=== PATIENT | female | born 1945 | race Caucasian/White ===

== ENCOUNTER 2017-11-05 11:46 | Inpatient (IN) ==
[2017-11-05] MEDS ORDERED: ONDANSETRON 4 MG/2 ML VIAL IV ONE (12:10)
[2017-11-05] MEDS ORDERED: 0.9 % SODIUM CHLORIDE 1,000 ML IV SCH (12:15)
[2017-11-05] MEDS: HYDROmorphone 2 MG/ML VIAL IV PRN ×3 (12:20→12:43)
--- NOTE | 2017-11-05 12:41 | Emergency Department Note ---
Lower Extremity Injury HPI - General Chief Complaint: Extremity Injury, Lower Stated Complaint: L hip fx Time Seen by Provider: 11/05/17 11:48 Source: patient Mode of arrival: wheelchair Limitations: no limitations - History of Present Illness HPI Narrative: 72-year-old female with advanced dementia presents with her . She was diagnosed with hip fracture about 2 weeks ago and since then has had a lot of pain in multiple falls. She saw Dr. Anderson yesterday and they decided on doing surgery either today or tomorrow. She last ate around 8:00 this morning. She is having significant pain in her hip. I saw her originally for this and she did not have much pain. She seems to be in a lot more pain now. She is able to verbalize that she is having pain. - Related Data Home Medications Medication Instructions Recorded Confirmed multivitamin,[id number] 1 tab PO QDAY 04/25/15 11/05/17 tablet LORazepam [Ativan] 1 tab PO TID PRN 10/20/17 11/05/17 Previous Rx's Medication Instructions Recorded fluoxetine 40 mg capsule 40 mg PO QDAY #30 cap 08/24/17 trazodone 50 mg tablet 50 mg PO QDAY PRN #90 tab 10/20/17 compression stocking,thigh See Dose Instructions .ROUTE 10/21/17 high,short length,med circum .MEDSUPPLY #2 each levothyroxine 112 mcg tablet 112 mcg PO QDAY #30 tab 10/30/17 methocarbamol 500 mg tablet 500 mg PO TID #30 tab 11/03/17 fentanyl 12 mcg/hr transdermal 1 patch TRANSDERMA Q72H #5 each 11/05/17 patch Allergies Allergy/AdvReac Type Severity Reaction Status Date / Time Penicillins Allergy Unknown Hives Verified 10/22/17 08:12 memantine [From Namenda] AdvReac Intermediate Hallucinati Verified 10/22/17 08: 12 ng Donepezil AdvReac Unknown Hallucinati Verified 10/22/17 08:12 ng Review of Systems All systems ED: reviewed and negative except as stated. 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 Absent: conjunctival injection Neck: Present: normal inspection, full ROM Chest: Present: normal inspection, symmetric chest wall rise Respiratory: Present: normal lung sounds bilaterally Cardiovascular: Present: tachycardia, normal heart sounds Abdominal: Present: soft, tenderness, normal bowel sounds. Absent: distention, guarding, rebound, rigidity Abdominal tenderness: Present: diffuse, mild Extremities: Present: other (Left hip is tender to palpation. I do not do much range of motion due to known fracture) Neurological: Present: alert. Absent: oriented X3 Psychiatric: Present: anxious Skin: Present: warm, dry, intact Course Vital Signs Temperature 99.4 F H 11/05/17 11:47 Pulse Rate 101 H 11/05/17 11:47 Respiratory Rate 16 11/05/17 11:47 Blood Pressure 150/92 11/05/17 11:47 Pulse Oximetry (%) 98 11/05/17 11:47 Temperature 97.5 F 11/05/17 14:41 Pulse Rate 94 H 11/05/17 14:41 Respiratory Rate 16 11/05/17 14:41 Blood Pressure 146/73 11/05/17 14:41 Pulse Oximetry (%) 95 11/05/17 14:41 Extremity Injury, Lower - MDM Narrative Medical decision making narrative: I talked with Dr. Anderson from [facility] and he is doing surgery today on the patient. She has been n.p.o. since being here. Pain has been relatively controlled with Dilaudid. She will be admitted by the hospitalist Dr. Mckeon - Lab Data Result diagrams: 11/05/17 12:43 11/05/17 12:42 Lab Results 11/05/17 11/05/17 11/05/17 Range/Units 12:10 12:42 12:43 WBC 6.5 (4.5-11.0) K/mcL RBC 4.03 (4.00-5.20) M/mcL Hgb 13.2 (12.0-15.0) g/dL Hct 38.5 (36.0-48.0) % MCV 95.5 (80.0-100.0) fL MCH 32.7 (26.0-34.0) pg MCHC 34.3 (31.0-36.0) g/dL RDW 13.9 (11.5-14.5) % Plt Count 355 (140-440) K/mcL MPV 7.3 L (7.4-10.4) fL Gran % 75.2 (38.0-78.0) % Lymph % (Auto) 15.3 L (15.5-49.0) % [place] % (Auto) 8.6 (1.0-12.0) % Eos % (Auto) 0.8 (0.0-7.0) % Baso % (Auto) 0.1 (0.0-2.0) % Gran # 4.9 (1.8-8.0) K/mcL Lymph # (Auto) 1.0 L (1.5-4.8) K/mcL [place] # (Auto) 0.6 (0.1-0.9) K/mcL Eos # (Auto) 0.1 (0.0-0.7) K/mcL Baso # (Auto) 0 (0.0-0.3) K/mcL Sodium 134 (133-145) mmol/L Potassium 4.2 (3.3-5.1) mmol/L Chloride 96 (96-108) mmol/L Carbon Dioxide 25 (22-30) mmol/L Anion Gap 13.0 (8-16) BUN 18 (8-23) mg/dl Creatinine 0.9 (0.6-1.1) mg/dl GFR Calculation 63 Glucose 104 (70-105) mg/dL Calcium 9.2 (8.6-10.4) mg/dl Total Bilirubin 0.8 (0.0-1.0) mg/dL AST 29 (0-37) U/l ALT 14 (0-40) U/l Alkaline Phosphatase 123 H (39-117) U/L Total Protein 7.4 (5.9-8.4) gm/dL Albumin 3.9 (3.2-5.2) gm/dL Globulin 3.5 (2.2-3.7) gm/dL Albumin/Globulin Ratio 1.1 (1.0-2.3) Procalcitonin < 0.05 (<0.10) ng/mL Urine Color Urine Appearance Urine pH (5.0-9.0) Ur Specific [place] (1.000-1.035) Urine Protein (NEG) mg/dL Urine Glucose (UA) (NEG) mg/dL Urine Ketones (NEG) mg/dL Urine Occult Blood (<0.03) mg/dL Urine Nitrate (NEG) Urine Bilirubin (NEG) mg/dL Urine Urobilinogen (NEG) mg/dL Ur Leukocyte Esterase (NEG) /uL Urine RBC (0-1) /hpf Urine WBC (0-4) /hpf Ur Squamous Epith Cells (0-4) /hpf Amorphous Crystals (0) /hpf Urine Bacteria (0) /hpf Urine Mucus (0) /hpf Ur Culture Indicated? 11/05/17 Range/Units 13:03 WBC (4.5-11.0) K/mcL RBC (4.00-5.20) M/mcL Hgb (12.0-15.0) g/dL Hct (36.0-48.0) % MCV (80.0-100.0) fL MCH (26.0-34.0) pg MCHC (31.0-36.0) g/dL RDW (11.5-14.5) % Plt Count (140-440) K/mcL MPV (7.4-10.4) fL Gran % (38.0-78.0) % Lymph % (Auto) (15.5-49.0) % [place] % (Auto) (1.0-12.0) % Eos % (Auto) (0.0-7.0) % Baso % (Auto) (0.0-2.0) % Gran # (1.8-8.0) K/mcL Lymph # (Auto) (1.5-4.8) K/mcL [place] # (Auto) (0.1-0.9) K/mcL Eos # (Auto) (0.0-0.7) K/mcL Baso # (Auto) (0.0-0.3) K/mcL Sodium (133-145) mmol/L Potassium (3.3-5.1) mmol/L Chloride (96-108) mmol/L Carbon Dioxide (22-30) mmol/L Anion Gap (8-16) BUN (8-23) mg/dl Creatinine (0.6-1.1) mg/dl GFR Calculation Glucose (70-105) mg/dL Calcium (8.6-10.4) mg/dl Total Bilirubin (0.0-1.0) mg/dL AST (0-37) U/l ALT (0-40) U/l Alkaline Phosphatase (39-117) U/L Total Protein (5.9-8.4) gm/dL Albumin (3.2-5.2) gm/dL Globulin (2.2-3.7) gm/dL Albumin/Globulin Ratio (1.0-2.3) Procalcitonin (<0.10) ng/mL Urine Color Yellow Urine Appearance Hazy Urine pH 6.0 (5.0-9.0) Ur Specific [place] 1.024 (1.000-1.035) Urine Protein Neg (NEG) mg/dL Urine Glucose (UA) Negative (NEG) mg/dL Urine Ketones 5/tr A (NEG) mg/dL Urine Occult Blood Neg (<0.03) mg/dL Urine Nitrate Neg (NEG) Urine Bilirubin Neg (NEG) mg/dL Urine Urobilinogen Neg (NEG) mg/dL Ur Leukocyte Esterase Neg (NEG) /uL Urine RBC 3 H (0-1) /hpf Urine WBC 0 (0-4) /hpf Ur Squamous Epith Cells 1 (0-4) /hpf Amorphous Crystals Few A (0) /hpf Urine Bacteria 0 (0) /hpf Urine Mucus Few (0) /hpf Ur Culture Indicated? No - Radiology Data Radiology results reviewed: Yes I reviewed the patient's radiology results. Moderate stable COPD changes. No acute disease Disposition Pt seen by PIECE WORK CHECKER/PA only: Yes Clinical Impression: Hip fracture Disposition: Xfer As Inpt ([facility]) Condition: Fair
[2017-11-05] MEDS ORDERED: cefTRIAXone 1 GM VIAL IV ONE (12:53)
--- NOTE | 2017-11-05 13:07 | XRay Report ---
CLINICAL INFORMATION: Preop COMPARISON: 06/22/2016 FINDINGS: Heart size, mediastinum and pulmonary vessels are normal. Moderate COPD changes are stable. No infiltrates or new pulmonary abnormalities. No effusions IMPRESSION: Moderate stable COPD changes. No acute disease Interpreted and Authenticated by: Everardo Finley 11/05/17
[2017-11-05 13:12] LABS: Basophils # (Auto) 0 K/mcL (0.0-0.3); Basophils % (Auto) 0.1 % (0.0-2.0); Eosinophils # (Auto) 0.1 K/mcL (0.0-0.7); Eosinophils % (Auto) 0.8 % (0.0-7.0); Granulocytes % (Auto) 75.2 % (38.0-78.0); Lymphocytes % (Auto) 15.3 % (15.5-49.0); Mean Cell Volume 95.5 fL (80.0-100.0); Mean Corpuscular HGB Conc 34.3 g/dL (31.0-36.0); Mean Corpuscular Hemoglobin 32.7 pg (26.0-34.0); Monocytes # (Auto) 0.6 K/mcL (0.1-0.9); Monocytes % (Auto) 8.6 % (1.0-12.0); Platelet Count 355 K/mcL (140-440); RBC 4.03 M/mcL (4.00-5.20); Red Cell Distribution Width 13.9 % (11.5-14.5)
[2017-11-05 13:41] LABS: ALT/SGPT 14 U/l (0-40); Albumin 3.9 gm/dL (3.2-5.2); Albumin/Globulin Ratio 1.1 (1.0-2.3); Alkaline Phosphatase 123 U/L (39-117); Blood Urea Nitrogen 18 mg/dl (8-23)
[2017-11-05 13:43] LABS: Appearance,Urine HAZY; Bacteria,Urine 0 /hpf (0); Bilirubin,Urine NEG (NEG); Color,Urine YELLOW; Glucose,Urine (UA) NEGATIVE (NEG); Leukocyte Esterase,Urine NEG /uL (NEG); Mucus,Urine FEW /hpf (0); Protein,Urine NEG (NEG); Specific Gravity,Urine 1.024 (1.000-1.035); Urine Amorphous Crystals FEW /hpf (0); Urine Blood NEG mg/dL (<0.03); Urine RBC 3 /hpf (0-1); Urine Squamous Epithelial Cell 1 /hpf (0-4); Urine WBC 0 /hpf (0-4); Urobilinogen,Urine NEG (NEG)
[2017-11-05] MEDS ORDERED: IPRATROPIUM/ALBUTEROL 3 ML AMPUL.NEB NEB ONE ×2 (13:47→14:50)
--- NOTE | 2017-11-05 14:41 | Emergency Department Note ---
ED Note Addendum Note Addendum: Case discussed with nurse practitioner lab tests have been reviewed consult with the orthopedic doctor patient to be admitted to the hospitalist and please will do surgery tomorrow for the hip fracture
[2017-11-05] MEDS ORDERED: oxyCODONE HCL 5 MG TABLET PO PRN ×2 (14:44→19:13)
[2017-11-05] MEDS ORDERED: LORazepam 0.5 MG TABLET PO PRN ×2 (14:44→19:13)
[2017-11-05] MEDS ORDERED: ACETAMINOPHEN 325 MG TABLET PO PRN ×2 (14:44→19:13)
[2017-11-05] MEDS ORDERED: ONDANSETRON 4 MG/2 ML VIAL IV PRN ×3 (14:44→19:13)
[2017-11-05] MEDS ORDERED: HYDROmorphone 2 MG/ML VIAL IV PRN (14:44)
[2017-11-05] MEDS ORDERED: DEXTROSE 5%-1/2NS 1,000 ML IV SCH (14:44)
[2017-11-05] MEDS ORDERED: ALBUTEROL SULFATE 2.5 MG/3 ML NEBULIZER NEB PRN ×2 (14:44→19:13)
[2017-11-05] MEDS ORDERED: CLINDAMYCIN 900 MG in DEXTROSE 5% IN WATER 50 ML IV ONE (14:50)
[2017-11-05] MEDS ORDERED: METHOCARBAMOL 500 MG TABLET PO SCH (15:00)
[2017-11-05] MEDS: IPRATROPIUM/ALBUTEROL 3 ML AMPUL.NEB NEB SCH ×4 (15:21→21:54)
--- NOTE | 2017-11-05 15:28 | Internal Med History&Physical ---
Medical - H&P: HPI Patient information: Note initiated : 11/05/17 at 3:26 pm Service Date, if different from initiated Date: [] Patient: Patricia Jenkins a 72 y/o F admitted on 11/05/17 for L hip fx. Chief Complaint: [] History of present illness: Ms. Jenkins is a 72 year old F with h/o severe dementia, non ambulatory, presents to the ER after being sent to the ER by Dr Anderson from ortho clinic. She is a resident of [facility] The patient apparently fell down a couple weeks ago, she was seen in the ED here and it was found that she had a left hip nondisplaced fracture. At that time with extensive discussion with orthopedics and family given advanced dementia nonambulatory status it was decided to treat this conservatively. The patient apparently had 2 or 3 more falls after that. The patient was seen in the ER to clinic today by Dr. Anderson x-ray done in the clinic showed that the fracture is not displaced. The patient has significant pain as a result of this fracture. The patient was sent to the ED today for evaluation. On speaking with Dr. Anderson it is understood that the patients family now wishes for operative intervention. Medicine is consulted for admission and management of chronic medical condition. The patient is nonverbal unable to provide any history. by the bedside confirmed the story. Denies any fever. In the emergency room patient had a low-grade temperature of 99.4, tachycardic with a heart rate of 101 blood pressure 1 5092 and she was saturating 95% on room air. Labs were unremarkable, urinalysis negative. Pro-calcitonin less than 0.05. Chest x-ray showed no acute infiltrate, moderate stable COPD. EKG done showed sinus tachycardia, QS pattern in V1 V2 V3, poor baseline, no significant change from EKG done in June 2016. There is no history of diabetes, no history of coronary kidney disease no history of congestive heart failure no history of myocardial infarction no history of strokes or TIAs. The patient was going for surgery today at around 3 PM The patient is high risk for perioperative mortality given her advanced dementia, decreased effort tolerance. I do not think much can be done to optimize her further. She has some wheezing and is getting DuoNeb perioperatively. I reviewed the risks with the patient's verbalized understanding. ROS unobtainable: due to mental status Medical - H&P: PMH Medical history: Medical History (Last Reviewed 04/22/17 @ 11:27 by Ryanne Bermudez, AILYN, REFINING EQUIPMENT OPERATOR) Upper respiratory infection (Acute) Frequent falls (Acute) Dementia (Chronic) Allergic rhinitis (Chronic) Shingles (Acute) Elevated blood pressure reading in office without diagnosis of hypertension ( Acute) Irritability and anger (Acute) COPD (chronic obstructive pulmonary disease) (Chronic) Osteoporosis (Chronic) Memory impairment (Chronic) Hyperlipidemia (Chronic) Hypothyroidism (Chronic) Hematuria (Resolved) Surgical history: Past Surgical History (Last Reviewed 04/22/17 @ 11:27 by Ryanne Bermudez, AILYN, REFINING EQUIPMENT OPERATOR) History of tonsillectomy (Resolved) Status post cataract surgery (Resolved ~01/2016) Pertinent family history: Family History (Last Reviewed 04/22/17 @ 11:27 by Ryanne Bermudez, AILYN, REFINING EQUIPMENT OPERATOR) Mother Heart failure Memory impairment Sister Alzheimer's disease Asthma Son Type 1 diabetes mellitus, Onset Age: 9 Medical - H&P: Meds Home Medications Medication Instructions Recorded Confirmed Type multivitamin,[id number] 1 tab PO QDAY 04/25/15 11/05/17 History tablet fluoxetine 40 mg capsule 40 mg PO QDAY #30 cap 08/24/17 11/05/17 Rx LORazepam [Ativan] 1 tab PO TID PRN 10/20/17 11/05/17 History trazodone 50 mg tablet 50 mg PO QDAY PRN #90 tab 10/20/17 11/05/17 Rx compression stocking,thigh See Dose Instructions .ROUTE 10/21/17 Rx high,short length,med circum .MEDSUPPLY #2 each levothyroxine 112 mcg tablet 112 mcg PO QDAY #30 tab 10/30/17 11/05/17 Rx methocarbamol 500 mg tablet 500 mg PO TID #30 tab 11/03/17 11/05/17 Rx fentanyl 12 mcg/hr transdermal 1 patch TRANSDERMA Q72H #5 each 11/05/17 Rx patch Allergies Allergy/AdvReac Type Severity Reaction Status Date / Time Penicillins Allergy Unknown Hives Verified 10/22/17 08:12 memantine [From Namenda] AdvReac Intermediate Hallucinati Verified 10/22/17 08: 12 ng Donepezil AdvReac Unknown Hallucinati Verified 10/22/17 08:12 ng Medical - H&P: Exam - Constitutional Vitals: Temp Pulse Resp BP Pulse Ox 97.5 F 94 H 16 146/73 95 11/05/17 14:41 11/05/17 14:41 11/05/17 14:41 11/05/17 14:41 11/05/17 14:41 Exam: GENERAL: The patient is a well-developed, malnourished, frail lady, drowsy, aoox0. VITAL SIGNS: Reviewed and as noted elsewhere. HEENT: Head is normocephalic and atraumatic. Pupils are equal, round, and reactive to light pin point. Nares appeared normal. Mouth appears any without lesions. Mucous membranes are dry NECK: Normal to inspection, Supple, No lymphadenopathy or thyromegaly. LUNGS: Air entry equal on both sides, prolonged exp phase, mild exp wheezing, no crackles or rhonchi noted. No accessory muscles of respiration HEART: tachycardic rate and rhythm normal, S1 and S2 heard, no Gallop, S3 or Rub Noted, No Gross murmur heard. ABDOMEN: Soft, nontender, and nondistended. Positive bowel sounds. No hepatosplenomegaly was noted. EXTREMITIES: No cyanosis, clubbing, rash, lesions or edema. NEUROLOGIC: Cranial nerves II through XII are grossly intact. PSYCHIATRIC: drowsy, SKIN: No ulceration or wounds noted, No jaundice, No rash noted. Medical - H&P: Reslt - Labs CBC & Chem 7: 11/05/17 12:43 11/05/17 12:42 Labs: Short CBC 11/05/17 Range/Units 12:43 WBC 6.5 (4.5-11.0) K/mcL Hgb 13.2 (12.0-15.0) g/dL Hct 38.5 (36.0-48.0) % Plt Count 355 (140-440) K/mcL BMP 11/05/17 12:42 Sodium 134 Potassium 4.2 Chloride 96 Carbon Dioxide 25 BUN 18 Creatinine 0.9 Glucose 104 Calcium 9.2 Liver Function 11/05/17 Range/Units 12:42 Total Bilirubin 0.8 (0.0-1.0) mg/dL AST 29 (0-37) U/l ALT 14 (0-40) U/l Alkaline Phosphatase 123 H (39-117) U/L Albumin 3.9 (3.2-5.2) gm/dL Urine 11/05/17 Range/Units 13:03 Urine Color Yellow Urine Appearance Hazy Urine pH 6.0 (5.0-9.0) Ur Specific [place] 1.024 (1.000-1.035) Urine Protein Neg (NEG) mg/dL Urine Glucose (UA) Negative (NEG) mg/dL Medical - H&P: A/P - Narrative A/P Narrative: A/P Left Hip Fracture- Management per Ortho, hemiarthroplasty planned Pre Op eval- noted copd, needs duoneb perioperatively, high risk, reviewed with family, given poor mental status, poor mental status at baseline, high risk of post op delirum, agitation and aspiration. Dementia- resume home meds, non verbal it seems COPD- some wheezing noted periop, duonebs q4 for now, will start on steroids/ azithromax if continues to have wheezing. dvt hep sq Dient npo for now DNR code status. Social History - Social History household members: spouse, family, other housing: house marital status: occupational status: retired occupation: [employer] occupational exposures/hazards: No pets and animals: No leisure activities: art, reading other: 2 sons - Dietary Habits well-balanced diet: about half the time eating out: 1-3 times/week during the past year weight has: decreased > 10 lbs - Exercise physical activity: additional frequency: other - Tobacco smoking status: Never smoker - Alcohol alcohol intake frequency: does not drink - Substance use substance use type: does not use - Madeline/Yarsanism madeline/jain: Judaism - Home Safety working smoke detector in home: Yes
[2017-11-05] MEDS ORDERED: FLUMAZENIL 0.1 MG/ML ML IV PRN (16:13)
[2017-11-05] MEDS ORDERED: MEPERIDINE 25 MG/ML SYRINGE IV PRN (16:13)
[2017-11-05] MEDS ORDERED: ACETAMINOPHEN 700 MG/70 ML BOTTLE IV ONE (16:13)
[2017-11-05] MEDS ORDERED: LACTATED RINGERS 250 ML IV PRN (16:13)
[2017-11-05] MEDS ORDERED: PROMETHAZINE 25 MG/ML VIAL IV PRN (16:13)
[2017-11-05] MEDS ORDERED: fentaNYL 100 MCG/2 ML VIAL IV PRN (16:13)
[2017-11-05] MEDS ORDERED: IPRATROPIUM/ALBUTEROL 3 ML AMPUL.NEB NEB PRN (16:13)
[2017-11-05] MEDS ORDERED: diphenhydrAMINE 50 MG/ML VIAL IV PRN (16:13)
[2017-11-05] MEDS ORDERED: BENZOCAINE/MENTHOL 1 LOZENGE PO PRN (16:13)
[2017-11-05] MEDS ORDERED: LACTATED RINGERS 1,000 ML IV SCH (16:15)
--- NOTE | 2017-11-05 16:47 | Brief Operative Note ---
Date of procedure: 11/05/17 Pre-op diagnosis: left displaced femoral neck fracture Post-op diagnosis: same Procedure: left hip kisha arthroplasty, cemented Grafts/Implants: Yes (Debuy [place] basic cemented stem size 5, 50mm head) Anesthesia: GLMA Findings: displaced femoral neck fracture Complications: none Surgeon: Simran Anderson Mirror Silverer: Maximo Dejesus Estimated blood loss (cc): 100 Tourniquet Time (Minutes): 0 Specimens Removed/Pathology: none sent Condition: stable Disposition: floor
[2017-11-05] MEDS: NALOXONE HCL 0.4 MG/ML VIAL IV PRN ×4 (18:12→18:25)
--- NOTE | 2017-11-05 18:34 | XRay Report ---
CLINICAL INFORMATION: ITS.REASON: s/p L hip kisha arthroplasty COMPARISON: None. FINDINGS: Left hip prostheses is anatomically aligned. Mild degenerative change of the right hip. No osseous abnormality. Soft tissues swelling the surgical site as expected IMPRESSION: Interpreted and Authenticated by: Everardo Finley 11/05/17
[2017-11-05] MEDS ORDERED: NALOXONE HCL 1 MG in 0.9 % SODIUM CHLORIDE 250 ML IV SCH (18:45)
[2017-11-05] MEDS ORDERED: NALOXONE HCL 0.4 MG/ML VIAL ONE (18:50)
[2017-11-05] MEDS ORDERED: AZITHROMYCIN 500 MG in DEXTROSE 5% IN WATER 250 ML IV ONE (19:42)
[2017-11-05] MEDS: DEXTROSE 5%-1/2NS 1,000 ML IV SCH (20:00)
[2017-11-05] MEDS ORDERED: HEPARIN 5,000 UNIT/ML VIAL SQ SCH (21:00)
[2017-11-05] MEDS ORDERED: METHOCARBAMOL 500 MG TABLET PO PRN (21:00)
[2017-11-05] MEDS ORDERED: traZODone HCL 50 MG TABLET PO PRN ×2 (21:00)
[2017-11-05] MEDS: methylPREDNISolone SOD SUCC 125 MG/2 ML VIAL IV SCH (22:00)
[2017-11-05] MEDS ORDERED: 0.9 % SODIUM CHLORIDE 10 ML SYRINGE IV SCH (22:00)
[2017-11-05] MEDS ORDERED: ENOXAPARIN 40 MG/0.4 ML SYRINGE SQ ONE ×2 (22:00)
[2017-11-06] MEDS: NALOXONE HCL 1 MG in 0.9 % SODIUM CHLORIDE 250 ML IV SCH ×3 (01:28→03:57)
[2017-11-06] MEDS: 0.9 % SODIUM CHLORIDE 10 ML SYRINGE IV SCH ×3 (01:39→13:59)
[2017-11-06] MEDS: HYDROmorphone 2 MG/ML VIAL IV PRN ×2 (03:30→08:27)
[2017-11-06] MEDS: IPRATROPIUM/ALBUTEROL 3 ML AMPUL.NEB NEB SCH ×6 (03:57→23:04)
[2017-11-06] MEDS: methylPREDNISolone SOD SUCC 125 MG/2 ML VIAL IV SCH (05:25)
[2017-11-06] MEDS ORDERED: NALOXONE HCL 1 MG in 0.9 % SODIUM CHLORIDE 250 ML IV PRN (07:15)
[2017-11-06] MEDS ORDERED: LEVOTHYROXINE SODIUM 112 MCG TABLET PO SCH ×2 (07:30)
--- NOTE | 2017-11-06 07:47 | Orthopedic Progress Note ---
Subjective Patient information: Note initiated : 11/06/17 at 7:45 am Service Date, if different from initiated Date: [] Patient: Patricia Jenkins 72 y/o F admitted on 11/05/17 for L hip fx. Chief Complaint: [] Principal diagnosis: left hip fracture Interval history: POD 1 s/p L hip kisha arthroplasty. Required a narcan drip and bipap after surgery - stopped at 0230- likely due to the dilaudid given in the ER upon arrival. This morning on room air and more at baseline. present. Objective Vital signs: Vital Signs Temp Pulse Pulse Resp BP BP BP 11/06/17 05:29 11/06/17 04:01 140/84 11/06/17 02:00 11/06/17 00:26 132/82 11/05/17 22:46 140/88 11/05/17 22:31 116/68 11/05/17 22:16 107/69 11/05/17 22:01 110/68 11/05/17 22:00 11/05/17 21:58 78 10 L 11/05/17 21:55 72 11 L 11/05/17 21:46 111/64 11/05/17 21:31 102/64 11/05/17 21:16 104/69 11/05/17 21:14 95 H 11 L 11/05/17 21:01 120/72 11/05/17 20:57 120/71 11/05/17 20:03 88 21 11/05/17 19:21 159/87 11/05/17 18:54 99.0 F 85 17 139/82 11/05/17 18:44 97.8 F 85 16 144/78 11/05/17 18:34 98.3 F 83 14 152/83 11/05/17 18:24 86 14 154/81 11/05/17 18:14 98.3 F 80 13 145/79 11/05/17 18:04 97.5 F 81 15 147/66 11/05/17 17:54 97.4 F 79 13 127/77 11/05/17 17:44 97.1 F 74 9 L 132/69 11/05/17 17:34 98.1 F 76 13 137/69 11/05/17 17:24 97.5 F 97 H 12 156/84 11/05/17 17:15 97.2 F 92 H 12 153/76 11/05/17 17:10 85 10 L 146/87 11/05/17 17:05 80 8 L 144/82 11/05/17 16:59 97.6 F 80 8 L 124/57 11/05/17 14:41 97.5 F 94 H 16 146/73 11/05/17 14:35 97.5 F 92 H 16 153/79 11/05/17 14:14 94 H 11/05/17 14:01 96 H 146/73 11/05/17 13:30 75 179/104 11/05/17 13:12 93 H 163/86 11/05/17 13:01 88 163/86 11/05/17 12:59 92 H 173/90 11/05/17 11:47 99.4 F H 101 H 16 150/92 Pulse Ox 11/06/17 05:29 95 11/06/17 04:01 11/06/17 02:00 98 11/06/17 00:26 11/05/17 22:46 11/05/17 22:31 11/05/17 22:16 11/05/17 22:01 11/05/17 22:00 98 11/05/17 21:58 11/05/17 21:55 100 11/05/17 21:46 11/05/17 21:31 11/05/17 21:16 11/05/17 21:14 98 11/05/17 21:01 11/05/17 20:57 11/05/17 20:03 11/05/17 19:21 11/05/17 18:54 99 11/05/17 18:44 100 11/05/17 18:34 100 11/05/17 18:24 97 11/05/17 18:14 100 11/05/17 18:04 100 11/05/17 17:54 100 11/05/17 17:44 100 11/05/17 17:34 100 11/05/17 17:24 95 11/05/17 17:15 100 11/05/17 17:10 100 11/05/17 17:05 100 11/05/17 16:59 100 11/05/17 14:41 95 11/05/17 14:35 95 11/05/17 14:14 94 11/05/17 14:01 97 11/05/17 13:30 90 11/05/17 13:12 100 11/05/17 13:01 95 11/05/17 12:59 94 11/05/17 11:47 98 Intake and Output 11/05/17 11/06/17 11/06/17 21:59 05:59 13:59 Intake Total 2633 / 2633 52 / 52 Output Total 600 / 600 400 / 400 Balance 2032 -348 / -348 Intake: IV 633 / 633 52 / 52 Sodium Chloride 0.9% 1,000 ml @ 563 / 563 250 mls/hr IV .Q4H RADHA Rx#: [id number] Narcan 1 mg In Sodium Chloride 52 / 52 0.9% 250 ml @ 0.2 MG/HR 50.5 mls/hr IV .Q5H RADHA Rx#: [id number] IV - Manual Only 1999 Output: Urine Catheter Amount 500 / 500 400 / 400 Estimated Blood Loss 100 / 100 Other: Urine Appearance Clear Urine Color Bright Yellow Weight 105 lb Intake & Output: Intake & Output 11/05/17 11/06/17 11/06/17 21:59 05:59 13:59 Intake Total 2633 / 2633 52 / 52 Output Total 600 / 600 400 / 400 Balance 2032 -348 / -348 Weight 105 lb Intake: IV 633 / 633 52 / 52 Sodium Chloride 0.9% 1,000 ml @ 563 / 563 250 mls/hr IV .Q4H RADHA Rx#: [id number] Narcan 1 mg In Sodium Chloride 52 / 52 0.9% 250 ml @ 0.2 MG/HR 50.5 mls/hr IV .Q5H RADHA Rx#: [id number] IV - Manual Only 1999 Output: Urine Catheter Amount 500 / 500 400 / 400 Estimated Blood Loss 100 / 100 Other: Urine Appearance Clear Urine Color Bright Yellow Incision: Yes clean and dry Incision clean and dry: Yes Dressing: Yes clean, Yes dry Weight bearing status: full Additional Comments: abduction pillow in place - Labs CBC & BMP: 11/05/17 12:43 11/05/17 12:42 Labs: 11/05/17 12:43 Hgb 13.2 Hct 38.5 Assessment and Plan (1) Fracture of hip, left, closed POD 1 s/p left hip kisha arthroplasty for displaced femoral neck fracture. Improved this AM but bit of long recovering after surgery. Likely will transition to regular med-surg bed today. - L hip: weight bearing as tolerated. PT/OT today with goal of at least sitting in a chair. Posterior hip precautions - Pain control- see how she does, currently dermal patch - Lovenox/scd's/IS - Dispo Pending Status: Acute Qualifiers: Encounter type: sequela Qualified Code(s): S72.002S - Fracture of unspecified part of neck of left femur, sequela
[2017-11-06] MEDS: DEXTROSE 5%-1/2NS 1,000 ML IV SCH (08:38)
[2017-11-06] MEDS ORDERED: FLUoxetine HCL 20 MG CAPSULE PO SCH ×2 (09:00)
[2017-11-06] MEDS ORDERED: MULTIVIT,THER IRON,CA,FA & MIN 1 TABLET PO SCH ×2 (09:00)
[2017-11-06] MEDS ORDERED: ACETAMINOPHEN 650 MG/65 ML BOTTLE IV PRN ×2 (09:05→11:27)
--- NOTE | 2017-11-06 09:06 | Operative Note ---
DATE OF OPERATION: 11/05/2017 PREOPERATIVE DIAGNOSIS: Left displaced femoral neck fracture. POSTOPERATIVE DIAGNOSIS: Left displaced femoral neck fracture. PROCEDURE PERFORMED: Left hip hemiarthroplasty. SURGEON: Simran Anderson MD WALL COVERING INSTALLER: Maximo Dejesus PA-C. ANESTHESIA: Archie Martinez CRNA via LMA and general. IV FLUIDS: 1400 mL lactated ringer. ESTIMATED BLOOD LOSS: 100 mL TOURNIQUET TIME: No applicable. IMPLANTS: 1. DePuy basic cemented stem size 5 [place]. 2. A fracture hip ball 50 mm. ANTIBIOTICS: 900 mg of clindamycin secondary to a PENICILLIN ALLERGY. COMPLICATIONS: None apparent. PATHOLOGY: None. INDICATIONS: The patient is a 72-year-old female with advanced dementia who is not conversive in a logical manner with multiple recent falls that was seen in the emergency department on 10/20 for evaluation of a left hip fracture. At that time it was a nondisplaced fracture and I had discussion with her sons with regard to treatment options to include operative and nonoperative. Per our discussion, the sons had stated that she would prefer the least invasive treatment available at that time including nonoperative. Given the nondisplaced nature of this fracture I did discuss that this can be done as she remains nonweightbearing. However, she has had several falls more recently over the weekend and presented to clinic today with a displaced fracture of femoral neck and extreme pain. At this time, discussed with the treatment options, and surgery was discussed with him. This would likely improve her pain and make her more mobile, especially with hygiene, etc. However, that has a very high risk of mortality and morbidity associated with this. He understands these risks; however, given the level of pain that she is in that is not well-controlled, they wished to proceed with surgery. DESCRIPTION OF PROCEDURE: The patient was met in the preoperative holding area. The site was verified and marked with a radiograph, validation of the correct side as well as the family input. She was then taken back to the operating room where she underwent successful anesthesia via an LMA. She had 1000 mg of TXA as well as 900 mg of IV clindamycin. She was placed in the lateral decubitus position with the left side up. It was then prepped and draped in the usual sterile fashion with ChloraPrep. Surgical timeout was performed to verify patient and correct procedure being performed, correct extremity being operated. Everybody was in agreement. Approximately a 10 cm incision was made over the posterior 1/3, middle 1/3 junction of the greater tuberosity extending distally along the shaft of the femur and posteriorly obliquely. Skin was sharply incised. The tensor fascia was identified and cleared. This was incised sharply as well to expose the trochanteric bursa as well as the greater trochanter itself. A self-retaining retractor was placed. The external rotators were identified posteriorly. Hemostasis had been obtained throughout the maintained throughout the case. The piriformis was tagged and excised off the piriformis insertion and the external rotators were excised, exposing the capsule. The capsule was incised in a T-type fashion to expose the femoral neck and the fracture itself. Dissection was taken down to the lesser tuberosity and marked 15 mm from there and then sharply incised using oscillating saw. The femoral neck fragments were excised. The femoral head was excised as well, excising some of the ligamentum teres along with this. The wound was then copiously irrigated utilizing a retractor, exposed the femoral neck with hip flexion and internal rotation. At this point, utilizing the box press operator and a canal finder and subsequent broaching up to a size 5 she had very bone very poor bone quality, including anterior bone quality, and I felt cementing was the best providing immediate stabilization, which in her case would be beneficial. Thus, we broached to a size 5, which had some rotational stability. At this point, we sized a femoral head which was a 50 mm. We trialed this and it was stable with a +5 mm head. The wound was copiously irrigated. Pulse lavage was utilized to clean out the canal. A cement restrictor was placed at 160 mm distal to the femoral neck cut. The canal was then pulse lavaged again and then a suction device was placed within the canal to keep it dry. The cement was being mixed on the back table. The cement was then injected utilizing the pressurized gun and then once filled, we pressurized the canal additionally. At this point, we placed the stem matching the femoral anteversion of the posterior cortical bone and held in place until cement was hardened. All the remaining loose cement was excised. Again, the wound was copiously irrigated with IrriSept which remained within the wound greater than 1 minute. The metal ball was placed onto the taper stem and impacted and the hip joint was reduced. It was taken through a range of motion. Length as well as stability was assessed and and was stable with this construct. The posterior capsule was closed with 0 Ethibond sutures with good stability. The piriformis was tagged back down to the greater trochanteric via soft tissue only. The tensor fascia mahamed was closed in a running fashion utilizing a barbed suture. The proximal muscular portion of that was closed with 0 Vicryl. The subcutaneous tissue was closed in layered fashion, 0 Vicryl deep to tack down the fat layer to the tensor to close down the deep space. Subcutaneous tissue closed with 3-0 Vicryl and skin closed with yomaira. A dry dressing was then applied. The patient was awoken from anesthesia and transferred to PACU in stable condition. POSTOPERATIVE PLAN: The patient will be admitted back to the floor for postoperative recovery. DLDuncan:madalyn Job ID: [id number] Doc ID: [id number] Simran MARTINEZ
[2017-11-06] MEDS ORDERED: LORazepam 0.5 MG TABLET PO PRN (09:44)
[2017-11-06] MEDS ORDERED: AZITHROMYCIN 250 MG in DEXTROSE 5% IN WATER 250 ML IV SCH (10:00)
[2017-11-06] MEDS ORDERED: ONDANSETRON 4 MG/2 ML VIAL IV PRN (11:27)
[2017-11-06] MEDS ORDERED: HYDROmorphone 2 MG/ML VIAL IV PRN (11:27)
[2017-11-06] MEDS ORDERED: ALBUTEROL SULFATE 2.5 MG/3 ML NEBULIZER NEB PRN (11:27)
[2017-11-06] MEDS ORDERED: ENOXAPARIN 40 MG/0.4 ML SYRINGE SQ SCH ×2 (13:00→14:00)
[2017-11-06] MEDS: ENOXAPARIN 40 MG/0.4 ML SYRINGE SQ SCH (13:59)
--- NOTE | 2017-11-06 14:31 | Internal Med Progress Note ---
Medical - PN: Subj Patient information: Note initiated : 11/06/17 at 2:29 pm Service Date, if different from initiated Date: [] Patient: Patricia Jenkins a 72 y/o F admitted on 11/05/17 for Left Hip Fracture. Chief Complaint: [] Interval history: Ms. Jenkins is a 72 year old F with h/o severe dementia, non ambulatory, presents to the ER after being sent to the ER by Dr Anderson from ortho clinic. She is a resident of [facility] The patient apparently fell down a couple weeks ago, she was seen in the ED here and it was found that she had a left hip nondisplaced fracture. At that time with extensive discussion with orthopedics and family given advanced dementia nonambulatory status it was decided to treat this conservatively. The patient apparently had 2 or 3 more falls after that. The patient was seen in the ER to clinic today by Dr. Anderson x-ray done in the clinic showed that the fracture is not displaced. The patient has significant pain as a result of this fracture. The patient was sent to the ED today for evaluation. On speaking with Dr. Anderson it is understood that the patients family now wishes for operative intervention. Medicine is consulted for admission and management of chronic medical condition. The patient is nonverbal unable to provide any history. by the bedside confirmed the story. Denies any fever. In the emergency room patient had a low-grade temperature of 99.4, tachycardic with a heart rate of 101 blood pressure 1 5092 and she was saturating 95% on room air. Labs were unremarkable, urinalysis negative. Pro-calcitonin less than 0.05. Chest x-ray showed no acute infiltrate, moderate stable COPD. EKG done showed sinus tachycardia, QS pattern in V1 V2 V3, poor baseline, no significant change from EKG done in June 2016. There is no history of diabetes, no history of coronary kidney disease no history of congestive heart failure no history of myocardial infarction no history of strokes or TIAs. The patient was going for surgery today at around 3 PM The patient is high risk for perioperative mortality given her advanced dementia, decreased effort tolerance. I do not think much can be done to optimize her further. She has some wheezing and is getting DuoNeb perioperatively. I reviewed the risks with the patient's verbalized understanding. 11/06 Patient seen and examined, overnight patient clinically improved, did not need BiPAP this morning. Of the Narcan drip. Patient is nonverbal unable to provide any meaningful history. by the bedside concerned about the chills. Resume patient's home medications especially Ativan at half dose 0.5 mg 3 times a day for as needed anxiety. Transfer the patient to [facility]. Pertinent ROS: unable - Constitutional Vitals: Vital Signs Temp Pulse Resp BP Pulse Ox 98 F 89 20 139/83 100 11/06/17 12:00 11/06/17 07:45 11/06/17 12:00 11/06/17 12:00 11/06/17 14:00 Period Temp Pulse Resp BP Sys/Brewer Pulse Ox Last 24 Hr 97.1 F-99.2 F 72-97 8-21 102-159/57-88 95-100 Intake and Output 11/06/17 11/06/17 11/06/17 05:59 13:59 21:59 Intake Total 52 / 52 1250 / 1250 Output Total 400 / 400 Balance -348 / -348 1250 / 1250 Weight 105 lb Patient Weight 11/07/17 05:59 Weight 105 lb Intake & Output: Intake & Output 11/06/17 11/06/17 11/06/17 05:59 13:59 21:59 Intake Total 52 / 52 1250 / 1250 Output Total 400 / 400 Balance -348 / -348 1250 / 1250 Weight 105 lb Intake: IV 52 / 52 1250 / 1250 Zithromax 250 mg In Dextrose 5% 250 / 250 in Water 250 ml @ 250 mls/hr IV Q24H [facility] Rx#:[id number] Dextrose 5%-1/2Ns IV Solution 1 1000 / 1000 ,000 ml @ 84 mls/hr IV .[id number] [facility] Rx#:[id number] Narcan 1 mg In Sodium Chloride 52 / 52 0.9% 250 ml @ 0.2 MG/HR 50.5 mls/hr IV .Q5H [facility] Rx#: [id number] Output: Urine Catheter Amount 400 / 400 Other: Urine Appearance Uretheral (Wolfe) Clear Urine Color Uretheral (Wolfe) Pale Exam: Constitutional; Afebrile, awake, not in distress. Eyes- No icterus, , No periorbital swelling Ears- Ext ear normal, Neck- Midline trachea, supple Respiratory system: Air Entry equal on both sides, No crackles or wheezing, no rhonchi. CVS- Rate rhythm regular, S1,S2 heard, no gallop, no rub. Abdomen- Soft nontender abdomen, no organomegaly, no tenderness, no guarding or rigidity, CORE INSPECTOR- AOOx0, moving all extremities, no gross focal deficit noted. Medical - PN: Obj Da - Labs CBC & Chem 7: 11/05/17 12:43 11/05/17 12:42 Labs: Abnormal Lab Results 11/05/17 11/05/17 11/05/17 13:03 12:43 12:42 MPV 7.3 L Lymph % (Auto) 15.3 L Lymph # (Auto) 1.0 L Alkaline Phosphatase 123 H Urine Ketones 5/tr A Urine RBC 3 H Amorphous Crystals Few A Meds: Medications Acetaminophen (Tylenol) 650 mg PO Q6HP PRN PRN Reason: PAIN/FEVER > 101 Albuterol Sulfate (Ventolin) 2.5 mg NEB Q2HP PRN PRN Reason: Shortness Of Breath Albuterol/Ipratropium (Duoneb) 3 ml NEB Q4HRT [facility] Enoxaparin Sodium (Lovenox) 40 mg SQ DAILY [facility] Last Admin: 11/06/17 13:59 Dose: 40 mg Fluoxetine HCl (Prozac) 40 mg PO DAILY [facility] Hydromorphone HCl (Dilaudid) 0.5 mg IV Q2HP PRN PRN Reason: PAIN LEVEL > 6 Last Admin: 11/06/17 13:52 Dose: 0.5 mg Azithromycin 250 mg/ Dextrose 250 mls @ 250 mls/hr IV Q24H [facility] Stop: 11/08/17 10:59 Acetaminophen (Ofirmev) 650 mg in 65 mls @ 130 mls/hr IV Q6HP PRN PRN Reason: PAIN/FEVER > 101 Iron Carb/Multivit/[place]/Folic Acid (Multivitamin W/Minerals) 1 tab PO DAILY [facility] Levothyroxine Sodium (Synthroid) 112 mcg PO ACB [facility] Lorazepam (Ativan) 0.5 mg PO TIDP PRN PRN Reason: Anxiety Methocarbamol (Robaxin) 500 mg PO TIDP PRN PRN Reason: Muscle Spasm Methylprednisolone Sodium Succinate (Solu-Medrol) 62.5 mg IV DAILY [facility] Ondansetron HCl (Zofran) 4 mg IV Q6HP PRN PRN Reason: Nausea And Vomiting Oxycodone HCl (Roxicodone) 5 mg PO Q4HP PRN PRN Reason: PAIN LEVEL 3-6 Sodium Chloride (Saline Flush) 10 ml IV Q8 [facility] Last Admin: 11/06/17 13:59 Dose: 10 ml Medical - PN: A/P - Time Spent With Patient Total time spent is greater than 50% in coordination of care (as documented) at patient's floor/unit and/or counseling patient: - Narrative A/P Narrative: A/P Left Hip Fracture- Management per Ortho, hemiarthroplasty ,post op day 1 Dementia- resume home meds, non verbal it seems COPD exacerbatio- resolved, on duonebs, on azithromycin and steroids, will complee 5 day course Hypoxic resp failure- post op due to copd and opiate overdose, resolved overnight, not needing bipap or narcan now. Altered mental status/ Opiate overdose- hold off on fentanyl, prn short acting drugs for now, monitor, AMS much better. dvt lovenox sq Dient npo for now DNR code status. Medical - PN: Qual - VTE Deep Vein Thrombosis/Pulmonary Embolism Present on Admission: No
[2017-11-06] MEDS ORDERED: DEXAMETHASONE 10 MG/ML VIAL IV ONE (15:05)
[2017-11-06] MEDS ORDERED: TRANEXAMIC ACID 1,000 MG/10 ML VIAL IV ONE (15:05)
[2017-11-06] MEDS ORDERED: PROPOFOL 200 MG/20 ML VIAL IV ONE (15:05)
[2017-11-06] MEDS ORDERED: LIDOCAINE HCL/PF 100 MG/5 ML SYRINGE IV ONE (15:05)
[2017-11-06] MEDS ORDERED: ONDANSETRON 4 MG/2 ML VIAL IV ONE (15:05)
[2017-11-06] MEDS: oxyCODONE HCL 5 MG TABLET PO PRN (16:15)
[2017-11-06] MEDS: LORazepam 0.5 MG TABLET PO PRN ×2 (16:48→20:40)
[2017-11-07] MEDS: oxyCODONE HCL 5 MG TABLET PO PRN ×3 (00:19→17:18)
[2017-11-07] MEDS ORDERED: OLANZapine 10 MG VIAL IM ONE (00:58)
[2017-11-07] MEDS: OLANZapine 10 MG VIAL IM PRN (01:12)
[2017-11-07] MEDS: 0.9 % SODIUM CHLORIDE 10 ML SYRINGE IV SCH (01:18)
[2017-11-07] MEDS: IPRATROPIUM/ALBUTEROL 3 ML AMPUL.NEB NEB SCH ×6 (02:32→22:52)
--- NOTE | 2017-11-07 07:16 | Orthopedic Progress Note ---
Subjective Patient information: Note initiated : 11/07/17 at 7:12 am Service Date, if different from initiated Date: [] Patient: Patricia Jenkins 72 y/o F admitted on 11/05/17 for Left Hip Fracture. Chief Complaint: [] Principal diagnosis: left hip fracture Interval history: POD 2 s/p L hip kisha arthroplasty. Disoriented overnight and pulled out IV per nurse but this AM is sleeping. Objective Vital signs: Vital Signs Temp Pulse Pulse Resp BP BP Pulse Ox 11/07/17 04:00 98.4 F 82 18 129/68 97 11/07/17 02:44 96 11/07/17 00:00 98.3 F 20 11/06/17 22:00 96 11/06/17 20:00 98.9 F 99 H 20 165/78 91 11/06/17 18:00 98 11/06/17 15:56 100 F H 16 132/76 98 11/06/17 15:14 90 18 11/06/17 14:00 100 11/06/17 12:00 98 F 20 139/83 99 11/06/17 10:00 98 11/06/17 08:29 99.2 F H 20 144/82 99 11/06/17 08:00 96 11/06/17 07:45 89 16 Intake and Output 11/06/17 11/07/17 11/07/17 21:59 05:59 13:59 Intake Total 280 / 280 Output Total 250 / 250 1500 / 1500 Balance -1500 / -1500 Intake: Oral 200 / 200 GI Tube Flush 80 / 80 Output: Urine Catheter Amount 250 / 250 1500 / 1500 Other: Meal Lunch Percent of Meal Consumed bites Feeding Ability Total Assistance Urine Appearance Uretheral (Wolfe) Clear Urine Color Dark Rajni Uretheral (Wolfe) Dark Yellow Weight 108 lb Intake & Output: Intake & Output 11/06/17 11/07/17 11/07/17 21:59 05:59 13:59 Intake Total 280 / 280 Output Total 250 / 250 1500 / 1500 Balance -1500 / -1500 Weight 108 lb Intake: Oral 200 / 200 GI Tube Flush 80 / 80 Output: Urine Catheter Amount 250 / 250 1500 / 1500 Other: Meal Lunch Percent of Meal Consumed bites Feeding Ability Total Assistance Urine Appearance Uretheral (Wolfe) Clear Urine Color Dark Rajni Uretheral (Wolfe) Dark Yellow Incision: Yes clean and dry Dressing: Yes clean Weight bearing status: full Additional Comments: Patient is asleep this AM. Appears comfortable, abduction pillow in place - Labs CBC & BMP: 11/05/17 12:43 11/05/17 12:42 Labs: 11/05/17 12:43 Hgb 13.2 Hct 38.5 Assessment and Plan (1) Fracture of hip, left, closed POD 2 s/p left hip kisha arthroplasty for displaced femoral neck fracture. Disorientation but per happens in the evening. - L hip: weight bearing as tolerated. PT/OT today with goal of at least sitting in a chair. Posterior hip precautions. Slow progress - Pain control- dermal patch, tylenol, - Lovenox/scd's/IS - Dispo Pending should follow up with ortho in 10-12 days after surgery, weight bearing as tolerated with posterior hip precations x6 weeks. Status: Acute Qualifiers: Encounter type: sequela Qualified Code(s): S72.002S - Fracture of unspecified part of neck of left femur, sequela
[2017-11-07] MEDS ORDERED: methylPREDNISolone SOD SUCC 125 MG/2 ML VIAL IV SCH ×2 (09:00)
[2017-11-07] MEDS ORDERED: AZITHROMYCIN 250 MG in DEXTROSE 5% IN WATER 250 ML IV SCH (10:00)
[2017-11-07] MEDS: LORazepam 0.5 MG TABLET PO PRN ×2 (10:30→20:04)
[2017-11-07] MEDS: LEVOTHYROXINE SODIUM 112 MCG TABLET PO SCH (10:37)
[2017-11-07] MEDS: AZITHROMYCIN 250 MG TABLET PO SCH (10:37)
[2017-11-07] MEDS: FLUoxetine HCL 20 MG CAPSULE PO SCH (10:39)
[2017-11-07] MEDS: MULTIVIT,THER IRON,CA,FA & MIN 1 TABLET PO SCH (10:40)
[2017-11-07] MEDS: ENOXAPARIN 40 MG/0.4 ML SYRINGE SQ SCH (10:46)
[2017-11-07] MEDS: predniSONE 20 MG TABLET PO SCH (10:49)
--- NOTE | 2017-11-07 11:24 | Internal Med Progress Note ---
Medical - PN: Subj Patient information: Note initiated : 11/07/17 at 11:22 am Service Date, if different from initiated Date: [] Patient: Patricia Jenkins a 72 y/o F admitted on 11/05/17 for Left Hip Fracture. Chief Complaint: [] Interval history: Ms. Jenkins is a 72 year old F with h/o severe dementia, non ambulatory, presents to the ER after being sent to the ER by Dr Anderson from ortho clinic. [facility] a [facility] The patient apparently fell down a couple weeks ago, she was seen in the ED here and it was found that she had a left hip nondisplaced fracture. At that time with extensive discussion with orthopedics and family given advanced dementia nonambulatory status it was decided to treat this conservatively. The patient apparently had 2 or 3 more falls after that. The patient was seen in the ER to clinic today by Dr. Anderson x-ray done in the clinic showed that the fracture is not displaced. The patient has significant pain as a result of this fracture. The patient was sent to the ED today for evaluation. On speaking with Dr. Anderson it is understood that the patients family now wishes for operative intervention. Medicine is consulted for admission and management of chronic medical condition. The patient is nonverbal unable to provide any history. by the bedside confirmed the story. Denies any fever. In the emergency room patient had a low-grade temperature of 99.4, tachycardic with a heart rate of 101 blood pressure 1 5092 and she was saturating 95% on room air. Labs were unremarkable, urinalysis negative. Pro-calcitonin less than 0.05. Chest x-ray showed no acute infiltrate, moderate stable COPD. EKG done showed sinus tachycardia, QS pattern in V1 V2 V3, poor baseline, no significant change from EKG done in June 2016. There is no history of diabetes, no history of coronary kidney disease no history of congestive heart failure no history of myocardial infarction no history of strokes or TIAs. The patient was going for surgery today at around 3 PM The patient is high risk for perioperative mortality given her advanced dementia, decreased effort tolerance. I do not think much can be done to optimize her further. She has some wheezing and is getting DuoNeb perioperatively. I reviewed the risks with the patient's verbalized understanding. 11/06 Patient seen and examined, overnight patient clinically improved, did not need BiPAP this morning. Of the Narcan drip. Patient is nonverbal unable to provide any meaningful history. by the bedside concerned about the chills. Resume patient's home medications especially Ativan at half dose 0.5 mg 3 times a day for as needed anxiety. Transfer the patient to [facility] status. 11/07 Pt seen examined overnight issures reviewed pt was having sundowning, zyprexa 5mg im given, with good response no iv access, on oral meds for now. will see how she does today, if still has sundowning and agitation, may need scheduled antip psychotic. plan reviewed with her . Pertinent ROS: unable. - Constitutional Vitals: Vital Signs Temp Pulse Resp BP Pulse Ox 98.3 F 99 H 20 166/80 92 11/07/17 08:00 11/07/17 08:00 11/07/17 08:00 11/07/17 08:00 11/07/17 10:00 Period Temp Pulse Resp BP Sys/Brewer Pulse Ox Last 24 Hr 98 F-100 F 79-99 16-20 129-166/68-83 91-100 Intake and Output 11/06/17 11/07/17 11/07/17 21:59 05:59 13:59 Intake Total 280 / 280 Output Total 250 / 250 1500 / 1500 Balance 30 / 30 -1500 / -1500 Weight 108 lb Intake & Output: Intake & Output 11/06/17 11/07/17 11/07/17 21:59 05:59 13:59 Intake Total 280 / 280 Output Total 250 / 250 1500 / 1500 Balance 30 / 30 -1500 / -1500 Weight 108 lb Intake: Oral 200 / 200 GI Tube Flush 80 / 80 Output: Urine Catheter Amount 250 / 250 1500 / 1500 Other: Meal Lunch Percent of Meal Consumed bites Feeding Ability Total Assistance Urine Appearance Uretheral (Wolfe) Clear Urine Color Dark Rajni Uretheral (Wolfe) Dark Yellow Exam: Constitutional; Afebrile,awake Respiratory system: Air Entry equal on both sides, No crackles or wheezing, no rhonchi. CVS- Rate rhythm regular, S1,S2 heard, no gallop, no rub. Abdomen- Soft nontender abdomen, no organomegaly, no tenderness, no guarding or rigidity, DIRECTOR OF STRATEGY & MOBILE- AOOx0, moving all extremities, no gross focal deficit noted. Medical - PN: Obj Da - Labs CBC & Chem 7: 11/05/17 12:43 11/05/17 12:42 Labs: Abnormal Lab Results 11/05/17 11/05/17 11/05/17 13:03 12:43 12:42 MPV 7.3 L Lymph % (Auto) 15.3 L Lymph # (Auto) 1.0 L Alkaline Phosphatase 123 H Urine Ketones 5/tr A Urine RBC 3 H Amorphous Crystals Few A Meds: Medications Acetaminophen (Tylenol) 650 mg PO Q6HP PRN PRN Reason: PAIN/FEVER > 101 Albuterol Sulfate (Ventolin) 2.5 mg NEB Q2HP PRN PRN Reason: Shortness Of Breath Albuterol/Ipratropium (Duoneb) 3 ml NEB Q4HRT [facility] Last Admin: 11/07/17 07:21 Dose: 3 ml Azithromycin (Zithromax) 250 mg PO DAILY [facility] Stop: 11/10/17 09:01 Last Admin: 11/07/17 10:37 Dose: 250 mg Enoxaparin Sodium (Lovenox) 40 mg SQ DAILY [facility] Last Admin: 11/07/17 10:46 Dose: 40 mg Fluoxetine HCl (Prozac) 40 mg PO DAILY [facility] Last Admin: 11/07/17 10:39 Dose: 40 mg Hydromorphone HCl (Dilaudid) 0.5 mg IV Q2HP PRN PRN Reason: PAIN LEVEL > 6 Last Admin: 11/06/17 13:52 Dose: 0.5 mg Acetaminophen (Ofirmev) 650 mg in 65 mls @ 130 mls/hr IV Q6HP PRN PRN Reason: PAIN/FEVER > 101 Iron Carb/Multivit/[place]/Folic Acid (Multivitamin W/Minerals) 1 tab PO DAILY [facility] Last Admin: 11/07/17 10:40 Dose: 1 tab Levothyroxine Sodium (Synthroid) 112 mcg PO ACB [facility] Last Admin: 11/07/17 10:37 Dose: 112 mcg Lorazepam (Ativan) 0.5 mg PO TIDP PRN PRN Reason: Anxiety Last Admin: 11/07/17 10:30 Dose: 0.5 mg Methocarbamol (Robaxin) 500 mg PO TIDP PRN PRN Reason: Muscle Spasm Olanzapine (Zyprexa) 5 mg IM ONCE PRN PRN Reason: Agitation Last Admin: 11/07/17 01:12 Dose: 5 mg Ondansetron HCl (Zofran) 4 mg IV Q6HP PRN PRN Reason: Nausea And Vomiting Oxycodone HCl (Roxicodone) 5 mg PO Q4HP PRN PRN Reason: PAIN LEVEL 3-6 Last Admin: 11/07/17 10:30 Dose: 5 mg Prednisone (Prednisone) 40 mg PO [facility] Last Admin: 11/07/17 10:49 Dose: 40 mg Medical - PN: A/P - Time Spent With Patient Total time spent is greater than 50% in coordination of care (as documented) at patient's floor/unit and/or counseling patient: - Narrative A/P Narrative: A/P Left Hip Fracture- Management per Ortho, hemiarthroplasty ,post op day 2 Dementia, with sundowning- resume home meds, lowered dose of ativan for now, zyprexa prn. COPD exacerbation- resolved, on duonebs, on azithromycin and steroids, will complee 5 day course Hypoxic resp failure- resolved, post op due to copd and opiate overdose, resolved overnight, not needing bipap or narcan now. Altered mental status/ Opiate overdose- hold off on fentanyl, prn short acting drugs for now, monitor, AMS much better. dvt lovenox sq DNR code status. Medical - PN: Qual - VTE Deep Vein Thrombosis/Pulmonary Embolism Present on Admission: No
[2017-11-07] MEDS: METHOCARBAMOL 500 MG TABLET PO PRN (19:00)
[2017-11-08] MEDS: oxyCODONE HCL 5 MG TABLET PO PRN ×3 (01:15→16:33)
[2017-11-08] MEDS: METHOCARBAMOL 500 MG TABLET PO PRN ×2 (01:15→11:31)
[2017-11-08] MEDS: IPRATROPIUM/ALBUTEROL 3 ML AMPUL.NEB NEB SCH ×6 (04:24→23:07)
--- NOTE | 2017-11-08 07:21 | Orthopedic Progress Note ---
Subjective Patient information: Note initiated : 11/08/17 at 7:15 am Service Date, if different from initiated Date: [] Patient: Patricia Jenkins 72 y/o F admitted on 11/05/17 for Left Hip Fracture. Chief Complaint: [] Principal diagnosis: left hip fracture Interval history: Overnight issues reviewed. Overall doing ok, no new issues. Objective Vital signs: Vital Signs Temp Pulse Pulse Resp BP Pulse Ox 11/08/17 07:09 85 16 11/08/17 03:40 98.9 F 90 16 142/70 11/08/17 02:00 97 11/07/17 23:27 98.1 F 82 12 130/77 95 11/07/17 22:59 92 H 20 11/07/17 20:10 99 H 18 11/07/17 20:00 98.7 F 88 20 144/76 95 11/07/17 18:00 95 11/07/17 16:25 98.1 F 18 146/79 95 11/07/17 15:37 88 16 11/07/17 14:00 92 11/07/17 11:32 98.1 F 20 154/80 92 11/07/17 10:00 92 11/07/17 08:00 98.3 F 99 H 20 166/80 92 11/07/17 07:22 79 16 95 Intake and Output 11/07/17 11/08/17 11/08/17 21:59 05:59 13:59 Intake Total 240 / 240 Output Total 550 / 550 Balance -310 / -310 Intake: Oral 240 / 240 Output: Void Amount 550 / 550 Other: Urine Color Straw # Voids 1 Weight 120 lb Intake & Output: Intake & Output 11/07/17 11/08/17 11/08/17 21:59 05:59 13:59 Intake Total 240 / 240 Output Total 550 / 550 Balance -310 / -310 Weight 120 lb Intake: Oral 240 / 240 Output: Void Amount 550 / 550 Other: Urine Color Straw # Voids 1 Incision: Yes clean and dry Incision clean and dry: Yes Dressing: Yes clean, Yes dry, Yes intact Weight bearing status: full Additional Comments: foot warm well perfused. - Labs CBC & BMP: 11/05/17 12:43 11/05/17 12:42 Labs: 11/08/17 11/05/17 06:58 12:43 Hgb Pending 13.2 Hct Pending 38.5 Assessment and Plan (1) Fracture of hip, left, closed POD 3 s/p left hip kisha arthroplasty for displaced femoral neck fracture. - L hip: full weight bearing as tolerated with posterior hip precautions. PT/ OT. - Pain control- dermal patch/oral pain control - Lovenox/scd's/IS - Dispo: Per plan on transitioning to [facility] possibly Thursday. Should f/u with ortho in 10-12 days after surgery, weight bearing as tolerated with posterior hip precations x6 weeks. Should d/c with lovenox as well. Keep dressing in place until follow up. Status: Acute Qualifiers: Encounter type: sequela Qualified Code(s): S72.002S - Fracture of unspecified part of neck of left femur, sequela
[2017-11-08] MEDS: LEVOTHYROXINE SODIUM 112 MCG TABLET PO SCH (07:36)
[2017-11-08] MEDS: predniSONE 20 MG TABLET PO SCH (07:36)
[2017-11-08 07:59] LABS: Basophils # (Auto) 0 K/mcL (0.0-0.3); Basophils % (Auto) 0.1 % (0.0-2.0); Eosinophils # (Auto) 0 K/mcL (0.0-0.7); Eosinophils % (Auto) 0.3 % (0.0-7.0); Granulocytes % (Auto) 76.5 % (38.0-78.0); Lymphocytes # (Auto) 1.3 K/mcL (1.5-4.8); Lymphocytes % (Auto) 13.8 % (15.5-49.0); Mean Cell Volume 95.6 fL (80.0-100.0); Mean Corpuscular HGB Conc 33.9 g/dL (31.0-36.0); Mean Corpuscular Hemoglobin 32.4 pg (26.0-34.0); Monocytes # (Auto) 0.9 K/mcL (0.1-0.9); Monocytes % (Auto) 9.3 % (1.0-12.0); Platelet Count 318 K/mcL (140-440); RBC 3.46 M/mcL (4.00-5.20); Red Cell Distribution Width 13.8 % (11.5-14.5)
[2017-11-08 08:03] LABS: Blood Urea Nitrogen 13 mg/dl (8-23)
[2017-11-08] MEDS: AZITHROMYCIN 250 MG TABLET PO SCH (08:25)
[2017-11-08] MEDS: MULTIVIT,THER IRON,CA,FA & MIN 1 TABLET PO SCH (08:26)
[2017-11-08] MEDS: LORazepam 0.5 MG TABLET PO PRN ×2 (08:30→16:04)
[2017-11-08] MEDS: FLUoxetine HCL 20 MG CAPSULE PO SCH (08:32)
[2017-11-08] MEDS: ENOXAPARIN 40 MG/0.4 ML SYRINGE SQ SCH (08:36)
[2017-11-08] MEDS ORDERED: POTASSIUM CHLORIDE 20 MEQ PACKET PO ONE (09:07)
--- NOTE | 2017-11-08 10:47 | Internal Med Progress Note ---
Medical - PN: Subj Patient information: Note initiated : 11/08/17 at 10:45 am Service Date, if different from initiated Date: [] Patient: Patricia Jenkins a 72 y/o F admitted on 11/05/17 for Left Hip Fracture. Chief Complaint: [] Interval history: Ms. Jenkins is a 72 year old F with h/o severe dementia, non ambulatory, presents to the ER after being sent to the ER by Dr Anderson from ortho clinic. She is a resident of [facility] The patient apparently fell down a couple weeks ago, she was seen in the ED here and it was found that she had a left hip nondisplaced fracture. At that time with extensive discussion with orthopedics and family given advanced dementia nonambulatory status it was decided to treat this conservatively. The patient apparently had 2 or 3 more falls after that. The patient was seen in the ER to clinic today by Dr. Anderson x-ray done in the clinic showed that the fracture is not displaced. The patient has significant pain as a result of this fracture. The patient was sent to the ED today for evaluation. On speaking with Dr. Anderson it is understood that the patients family now wishes for operative intervention. Medicine is consulted for admission and management of chronic medical condition. The patient is nonverbal unable to provide any history. by the bedside confirmed the story. Denies any fever. In the emergency room patient had a low-grade temperature of 99.4, tachycardic with a heart rate of 101 blood pressure 1 5092 and she was saturating 95% on room air. Labs were unremarkable, urinalysis negative. Pro-calcitonin less than 0.05. Chest x-ray showed no acute infiltrate, moderate stable COPD. EKG done showed sinus tachycardia, QS pattern in V1 V2 V3, poor baseline, no significant change from EKG done in June 2016. There is no history of diabetes, no history of coronary kidney disease no history of congestive heart failure no history of myocardial infarction no history of strokes or TIAs. The patient was going for surgery today at around 3 PM The patient is high risk for perioperative mortality given her advanced dementia, decreased effort tolerance. I do not think much can be done to optimize her further. She has some wheezing and is getting DuoNeb perioperatively. I reviewed the risks with the patient's verbalized understanding. 11/06 Patient seen and examined, overnight patient clinically improved, did not need BiPAP this morning. Of the Narcan drip. Patient is nonverbal unable to provide any meaningful history. by the bedside concerned about the chills. Resume patient's home medications especially Ativan at half dose 0.5 mg 3 times a day for as needed anxiety. Transfer the patient to [facility]. 11/07 Pt seen examined overnight issures reviewed pt was having sundowning, zyprexa 5mg im given, with good response no iv access, on oral meds for now. will see how she does today, if still has sundowning and agitation, may need scheduled antip psychotic. plan reviewed with her . 11/08 Pt seen examined no acute issues stable labs stable K 3.3, replace await placement no iv access, but no need Pertinent ROS: unable - Constitutional Vitals: Vital Signs Temp Pulse Resp BP Pulse Ox 98.7 F 84 16 141/88 99 11/08/17 09:05 11/08/17 10:36 11/08/17 09:05 11/08/17 09:05 11/08/17 10:36 Period Temp Pulse Resp BP Sys/Brewer Pulse Ox Last 24 Hr 98.1 F-98.9 F 82-99 12-20 130-154/70-88 92-99 Intake and Output 11/07/17 11/08/17 11/08/17 21:59 05:59 13:59 Intake Total 240 / 240 Output Total 550 / 550 Balance -310 / -310 - -1 Weight 120 lb Intake & Output: Intake & Output 11/07/17 11/08/17 11/08/17 21:59 05:59 13:59 Intake Total 240 / 240 Output Total 550 / 550 Balance -310 / -310 - - Weight 120 lb Intake: Oral 240 / 240 Output: Void Amount 550 / 550 # of times incontinent of urine Other: Urine Color Straw # Voids 1 Exam: Constitutional; Afebrile, somewhat cooperative, alert, not in distress. Respiratory system: Air Entry equal on both sides, No crackles or wheezing, no rhonchi. CVS- Rate rhythm regular, S1,S2 heard, no gallop, no rub. 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 Medical - PN: Obj Da - Labs CBC & Chem 7: 11/08/17 06:58 11/08/17 06:58 Labs: Abnormal Lab Results 11/08/17 11/08/17 11/05/17 06:58 06:58 13:03 RBC 3.46 L Hgb 11.2 L Hct 33.1 L MPV 7.0 L Lymph % (Auto) 13.8 L Lymph # (Auto) 1.3 L Calcium 8.1 L Alkaline Phosphatase Urine Ketones 5/tr A Urine RBC 3 H Amorphous Crystals Few A 11/05/17 11/05/17 12:43 12:42 RBC Hgb Hct MPV 7.3 L Lymph % (Auto) 15.3 L Lymph # (Auto) 1.0 L Calcium Alkaline Phosphatase 123 H Urine Ketones Urine RBC Amorphous Crystals Meds: Medications Acetaminophen (Tylenol) 650 mg PO Q6HP PRN PRN Reason: PAIN/FEVER > 101 Albuterol Sulfate (Ventolin) 2.5 mg NEB Q2HP PRN PRN Reason: Shortness Of Breath Albuterol/Ipratropium (Duoneb) 3 ml NEB Q4HRT [facility] Last Admin: 11/08/17 07:08 Dose: 3 ml Azithromycin (Zithromax) 250 mg PO DAILY [facility] Stop: 11/10/17 09:01 Last Admin: 11/08/17 08:25 Dose: 250 mg Enoxaparin Sodium (Lovenox) 40 mg SQ DAILY [facility] Last Admin: 11/08/17 08:36 Dose: 40 mg Fluoxetine HCl (Prozac) 40 mg PO DAILY [facility] Last Admin: 11/08/17 08:32 Dose: 40 mg Hydromorphone HCl (Dilaudid) 0.5 mg IV Q2HP PRN PRN Reason: PAIN LEVEL > 6 Last Admin: 11/06/17 13:52 Dose: 0.5 mg Acetaminophen (Ofirmev) 650 mg in 65 mls @ 130 mls/hr IV Q6HP PRN PRN Reason: PAIN/FEVER > 101 Iron Carb/Multivit/[place]/Folic Acid (Multivitamin W/Minerals) 1 tab PO DAILY [facility] Last Admin: 11/08/17 08:26 Dose: 1 tab Levothyroxine Sodium (Synthroid) 112 mcg PO ACB [facility] Last Admin: 11/08/17 07:36 Dose: 112 mcg Lorazepam (Ativan) 0.5 mg PO TIDP PRN PRN Reason: Anxiety Last Admin: 11/08/17 08:30 Dose: 0.5 mg Methocarbamol (Robaxin) 500 mg PO TIDP PRN PRN Reason: Muscle Spasm Last Admin: 11/08/17 01:15 Dose: 500 mg Olanzapine (Zyprexa) 5 mg IM ONCE PRN PRN Reason: Agitation Last Admin: 11/07/17 01:12 Dose: 5 mg Ondansetron HCl (Zofran) 4 mg IV Q6HP PRN PRN Reason: Nausea And Vomiting Oxycodone HCl (Roxicodone) 5 mg PO Q4HP PRN PRN Reason: PAIN LEVEL 3-6 Last Admin: 11/08/17 08:29 Dose: 5 mg Prednisone (Prednisone) 40 mg PO [facility] Last Admin: 11/08/17 07:36 Dose: 40 mg Medical - PN: A/P - Time Spent With Patient Total time spent is greater than 50% in coordination of care (as documented) at patient's floor/unit and/or counseling patient: - Narrative A/P Narrative: A/P Left Hip Fracture- Management per Ortho, hemiarthroplasty ,post op day 2 Dementia, with sundowning- resume home meds, lowered dose of ativan for now, zyprexa prn. COPD exacerbation- resolved, on duonebs, on azithromycin and steroids, will complete 5 day course Hypoxic resp failure- resolved, post op due to copd and opiate overdose, resolved overnight, not needing bipap or narcan now. Altered mental status/ Opiate overdose- hold off on fentanyl, prn short acting drugs for now, monitor, AMS much better. dvt lovenox sq DNR code status. Medical - PN: Qual - VTE Deep Vein Thrombosis/Pulmonary Embolism Present on Admission: No
[2017-11-09] MEDS: oxyCODONE HCL 5 MG TABLET PO PRN ×2 (00:03→18:42)
[2017-11-09] MEDS: OLANZapine 10 MG VIAL IM PRN (00:04)
[2017-11-09] MEDS: IPRATROPIUM/ALBUTEROL 3 ML AMPUL.NEB NEB SCH ×5 (03:12→21:49)
[2017-11-09] MEDS: FLUoxetine HCL 20 MG CAPSULE PO SCH (07:30)
[2017-11-09] MEDS: ACETAMINOPHEN 325 MG TABLET PO PRN (07:31)
[2017-11-09] MEDS: LEVOTHYROXINE SODIUM 112 MCG TABLET PO SCH (07:31)
[2017-11-09] MEDS: LORazepam 0.5 MG TABLET PO PRN ×2 (07:50→18:43)
[2017-11-09] MEDS: predniSONE 20 MG TABLET PO SCH (07:50)
[2017-11-09] MEDS: AZITHROMYCIN 250 MG TABLET PO SCH (08:02)
[2017-11-09] MEDS: OLANZapine 10 MG VIAL IM SCH (09:06)
--- NOTE | 2017-11-09 09:43 | Internal Med Progress Note ---
Medical - PN: Subj Patient information: Note initiated : 11/09/17 at 9:41 am Service Date, if different from initiated Date: [] Patient: Patricia Jenkins a 72 y/o F admitted on 11/05/17 for Left Hip Fracture. Chief Complaint: [] Interval history: Ms. Jenkins is a 72 year old F with h/o severe dementia, non ambulatory, presents to the ER after being sent to the ER by Dr Anderson from ortho clinic. She is a resident of [facility] The patient apparently fell down a couple weeks ago, she was seen in the ED here and it was found that she had a left hip nondisplaced fracture. At that time with extensive discussion with orthopedics and family given advanced dementia nonambulatory status it was decided to treat this conservatively. The patient apparently had 2 or 3 more falls after that. The patient was seen in the ER to clinic today by Dr. Anderson x-ray done in the clinic showed that the fracture is not displaced. The patient has significant pain as a result of this fracture. The patient was sent to the ED today for evaluation. On speaking with Dr. Anderson it is understood that the patients family now wishes for operative intervention. Medicine is consulted for admission and management of chronic medical condition. The patient is nonverbal unable to provide any history. by the bedside confirmed the story. Denies any fever. In the emergency room patient had a low-grade temperature of 99.4, tachycardic with a heart rate of 101 blood pressure 1 5092 and she was saturating 95% on room air. Labs were unremarkable, urinalysis negative. Pro-calcitonin less than 0.05. Chest x-ray showed no acute infiltrate, moderate stable COPD. EKG done showed sinus tachycardia, QS pattern in V1 V2 V3, poor baseline, no significant change from EKG done in June 2016. There is no history of diabetes, no history of coronary kidney disease no history of congestive heart failure no history of myocardial infarction no history of strokes or TIAs. The patient was going for surgery today at around 3 PM The patient is high risk for perioperative mortality given her advanced dementia, decreased effort tolerance. I do not think much can be done to optimize her further. She has some wheezing and is getting DuoNeb perioperatively. I reviewed the risks with the patient's verbalized understanding. 11/06 Patient seen and examined, overnight patient clinically improved, did not need BiPAP this morning. Of the Narcan drip. Patient is nonverbal unable to provide any meaningful history. by the bedside concerned about the chills. Resume patient's home medications especially Ativan at half dose 0.5 mg 3 times a day for as needed anxiety. Transfer the patient to [facility]. 11/07 Pt seen examined overnight issures reviewed pt was having sundowning, zyprexa 5mg im given, with good response no iv access, on oral meds for now. will see how she does today, if still has sundowning and agitation, may need scheduled antip psychotic. plan reviewed with her . 11/08 Pt seen examined no acute issues stable labs stable K 3.3, replace await placement no iv access, but no need 11/09 Pt seen examined, overnight agitated wanting to get out of b ed Pertinent ROS: unable - Constitutional Vitals: Vital Signs Temp Pulse Resp BP Pulse Ox 98.2 F 96 H 16 118/75 96 11/09/17 07:30 11/09/17 00:00 11/09/17 07:30 11/09/17 07:30 11/09/17 07:30 Period Temp Pulse Resp BP Sys/Brewer Pulse Ox Last 24 Hr 97 F-98.8 F 84-96 14-20 118-162/74-85 91-99 Intake and Output 11/08/17 11/09/17 11/09/17 21:59 05:59 13:59 Intake Total 240 / 240 0 / 0 Output Total Balance 238 / 238 - - Weight 118 lb Intake & Output: Intake & Output 11/08/17 11/09/17 11/09/17 21:59 05:59 13:59 Intake Total 240 / 240 0 / 0 Output Total Balance 238 / 238 - / -1 Weight 118 lb Intake: Oral 240 / 240 0 / 0 Output: # of times incontinent of urine Exam: Constitutional; Afebrile, awake, confused trying to get out of bed Respiratory system: Air Entry equal on both sides, No crackles or wheezing, no rhonchi. CVS- Rate rhythm regular, S1,S2 heard, no gallop, no rub. 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 Medical - PN: Obj Da - Labs CBC & Chem 7: 11/08/17 06:58 11/08/17 06:58 Labs: Abnormal Lab Results 11/08/17 11/08/17 06:58 06:58 RBC 3.46 L Hgb 11.2 L Hct 33.1 L MPV 7.0 L Lymph % (Auto) 13.8 L Lymph # (Auto) 1.3 L Calcium 8.1 L Meds: Medications Acetaminophen (Tylenol) 650 mg PO Q6HP PRN PRN Reason: PAIN/FEVER > 101 Last Admin: 11/09/17 07:31 Dose: 650 mg Albuterol Sulfate (Ventolin) 2.5 mg NEB Q2HP PRN PRN Reason: Shortness Of Breath Albuterol/Ipratropium (Duoneb) 3 ml NEB Q4HRT [facility] Last Admin: 11/09/17 07:19 Dose: 3 ml Azithromycin (Zithromax) 250 mg PO DAILY [facility] Stop: 11/10/17 09:01 Last Admin: 11/09/17 08:02 Dose: 250 mg Enoxaparin Sodium (Lovenox) 40 mg SQ DAILY [facility] Last Admin: 11/08/17 08:36 Dose: 40 mg Fluoxetine HCl (Prozac) 40 mg PO DAILY [facility] Last Admin: 11/09/17 07:30 Dose: 40 mg Hydromorphone HCl (Dilaudid) 0.5 mg IV Q2HP PRN PRN Reason: PAIN LEVEL > 6 Last Admin: 11/06/17 13:52 Dose: 0.5 mg Acetaminophen (Ofirmev) 650 mg in 65 mls @ 130 mls/hr IV Q6HP PRN PRN Reason: PAIN/FEVER > 101 Iron Carb/Multivit/[place]/Folic Acid (Multivitamin W/Minerals) 1 tab PO DAILY [facility] Last Admin: 11/08/17 08:26 Dose: 1 tab Levothyroxine Sodium (Synthroid) 112 mcg PO ACB [facility] Last Admin: 11/09/17 07:31 Dose: 112 mcg Lorazepam (Ativan) 0.5 mg PO TIDP PRN PRN Reason: Anxiety Last Admin: 11/09/17 07:50 Dose: 0.5 mg Methocarbamol (Robaxin) 500 mg PO TIDP PRN PRN Reason: Muscle Spasm Last Admin: 11/08/17 11:31 Dose: 500 mg Olanzapine (Zyprexa) 5 mg IM ONCE [facility] Last Admin: 11/09/17 09:06 Dose: 5 mg Ondansetron HCl (Zofran) 4 mg IV Q6HP PRN PRN Reason: Nausea And Vomiting Oxycodone HCl (Roxicodone) 5 mg PO Q4HP PRN PRN Reason: PAIN LEVEL 3-6 Last Admin: 11/09/17 00:03 Dose: 5 mg Prednisone (Prednisone) 40 mg PO [facility] Last Admin: 11/09/17 07:50 Dose: 40 mg Medical - PN: A/P - Time Spent With Patient Total time spent is greater than 50% in coordination of care (as documented) at patient's floor/unit and/or counseling patient: - Narrative A/P Narrative: A/P Left Hip Fracture- Management per Ortho, hemiarthroplasty Dementia, with sundowning- resume home meds, , zyprexa prn. increased the dose of ativan back to home dose. COPD exacerbation- resolved, on duonebs, on azithromycin and steroids, will complete 5 day course Hypoxic resp failure- resolved, post op due to copd and opiate overdose, resolved overnight, not needing bipap or narcan now. Altered mental status/ Opiate overdose- hold off on fentanyl, prn short acting drugs for now, monitor, AMS much better. dvt lovenox sq DNR code status. Plan of care reviewed with Medical - PN: Qual - VTE Deep Vein Thrombosis/Pulmonary Embolism Present on Admission: No
[2017-11-09] MEDS: ENOXAPARIN 40 MG/0.4 ML SYRINGE SQ SCH (13:54)
[2017-11-09] MEDS: MULTIVIT,THER IRON,CA,FA & MIN 1 TABLET PO SCH (13:55)
[2017-11-10] MEDS: oxyCODONE HCL 5 MG TABLET PO PRN (01:44)
[2017-11-10] MEDS: LORazepam 0.5 MG TABLET PO PRN (02:27)
[2017-11-10] MEDS: IPRATROPIUM/ALBUTEROL 3 ML AMPUL.NEB NEB SCH ×3 (08:28→22:41)
--- NOTE | 2017-11-10 10:16 | Discharge Summary ---
Medical - DS: Prov Patient information: Note initiated : 11/10/17 at 10:13 am Service Date, if different from initiated Date: [] Patient: Patricia Jenkins a 72 y/o F admitted on 11/05/17 for Left Hip Fracture. Chief Complaint: [] Date of admission: 11/05/17 14:18 Discharge date: 11/10/17 Primary care physician: Ryanne Bermudez Admitting clinician: Sylvain Mckeon Consults: 11/05/17 12:31 Consult to Physician [CONS] Stat Comment: Consulting Provider: Simran Anderson Reason For Exam: Physician to Consult Discharging clinician: Sylvain Mckeon Medical - DS: Meds - Discharge Medications Prescriptions: Enoxaparin [Lovenox] 40 mg SQ DAILY #28 syringe LORazepam [Ativan] 1 tab PO TID PRN #30 tab PRN Reason: agitation Methocarbamol [Robaxin] 500 mg PO TID #30 tab oxyCODONE HCL [Roxicodone] 5 mg PO Q4HP PRN #40 tab PRN Reason: Severe Pain Active and Home Medications: Home Medications multivitamin,[id number] tablet 1 tab PO QDAY 04/25/15 [History Confirmed 11/05/17 Last Taken 10/16/17 08:00] fluoxetine 40 mg capsule 40 mg PO QDAY #30 cap 08/24/17 [Rx Confirmed 11/05/17 Last Taken 10/16/17 08:00] LORazepam [Ativan] 1 tab PO TID PRN 10/20/17 [History Confirmed 11/05/17 Last Taken 10/14/17] trazodone 50 mg tablet 50 mg PO QDAY PRN #90 tab 10/20/17 [Rx Confirmed Last Taken Unknown] levothyroxine 112 mcg tablet 112 mcg PO QDAY #30 tab 10/30/17 [Rx Confirmed Last Taken Unknown] methocarbamol 500 mg tablet 500 mg PO TID #30 tab 11/03/17 [Rx Confirmed Last Taken Unknown] fentanyl 12 mcg/hr transdermal patch 1 patch TRANSDERMA Q72H #5 each 11/05/17 [ Rx Confirmed 11/05/17 Last Taken Unknown] Medical - DS: Hosp Hospital course: Ms. Jenkins is a 72 year old F with h/o severe dementia, non ambulatory, presents to the ER after being sent to the ER by Dr Anderson from ortho clinic. She is a resident of [facility], The patient apparently fell down a couple weeks ago, she was seen in the ED here and it was found that she had a left hip nondisplaced fracture. At that time with extensive discussion with orthopedics and family given advanced dementia nonambulatory status it was decided to treat this conservatively. The patient apparently had 2 or 3 more falls after that. The patient was seen in the ER to clinic today by Dr. Anderson x-ray done in the clinic showed that the fracture is not displaced. The patient has significant pain as a result of this fracture. The patient was sent to the ED today for evaluation. On speaking with Dr. Anderson it is understood that the patients family now wishes for operative intervention. Medicine is consulted for admission and management of chronic medical condition. The patient is nonverbal unable to provide any history. by the bedside confirmed the story. Denies any fever. In the emergency room patient had a low-grade temperature of 99.4, tachycardic with a heart rate of 101 blood pressure 1 5092 and she was saturating 95% on room air. Labs were unremarkable, urinalysis negative. Pro-calcitonin less than 0.05. Chest x-ray showed no acute infiltrate, moderate stable COPD. EKG done showed sinus tachycardia, QS pattern in V1 V2 V3, poor baseline, no significant change from EKG done in June 2016. There is no history of diabetes, no history of coronary kidney disease no history of congestive heart failure no history of myocardial infarction no history of strokes or TIAs. The patient was going for surgery today at around 3 PM The patient is high risk for perioperative mortality given her advanced dementia, decreased effort tolerance. I do not think much can be done to optimize her further. She has some wheezing and is getting DuoNeb perioperatively. I reviewed the risks with the patient's verbalized understanding. Hip fracture- s/p surgery did well, no complications reported. Pt post op continued to be confused. patient will be discharged to REhab. Lovnox 40mg daily for dvt prophylaxis. oxycodone for pain COPD exacerbation- Pre op the patient had some wheezing, post op she was drowsy and overseaded needing bipap, steroids and abx, duonebs given responded well, She will do well with neublizer iprtropium/ albuterol three time a day The rest of the stay in the hospital was uneventful. I have stopped the fentanyl patch and switched this to oxycodone. Discharge diagnosis: hip fracture, reactive airway/ copd - Time Spent with Patient Total time spent providing and/or coordinating discharge services: Greater than 30 minutes Medical - DS: Exam - Constitutional Vitals: Vital Signs Temp Pulse Pulse Resp BP BP BP 11/10/17 08:29 85 20 11/10/17 07:58 98.8 F 84 22 162/96 11/10/17 04:00 98.6 F 69 16 170/81 11/10/17 00:00 98.2 F 16 142/78 11/09/17 20:00 98.4 F 16 144/78 11/09/17 16:04 97.9 F 16 145/70 11/09/17 15:00 11/09/17 14:55 89 20 11/09/17 12:31 98.3 F 18 126/83 11/09/17 11:00 Pulse Ox 11/10/17 08:29 91 11/10/17 07:58 95 11/10/17 04:00 98 11/10/17 00:00 90 11/09/17 20:00 92 11/09/17 16:04 92 11/09/17 15:00 95 11/09/17 14:55 11/09/17 12:31 91 11/09/17 11:00 95 Intake and Output 11/09/17 11/10/17 11/10/17 21:59 05:59 13:59 Intake Total 120 / 120 120 / 120 Output Total Balance 120 / 120 119 / 119 Intake: Oral 120 / 120 120 / 120 Output: # of times incontinent of urine Other: Weight 117 lb 5 oz Additional comments: Constitutional; Afebrile, cooperative,drowsy, not in distress. Respiratory system: Air Entry equal on both sides, No crackles or wheezing, no rhonchi. CVS- Rate rhythm regular, S1,S2 heard, no gallop, no rub. 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 Medical - DS: A/P - Patient/Caregiver Discharge Instructions Activity: as per physical therapy Diet: Dysphagia Mech Alter ([place] thick liquid) - Follow up Plan Follow up with: Ryanne Bermudez, AILYN, LIGHTING ADVISER [Primary Care Provider] - Simran Anderson MD [Physician] - Disposition: Xfer SNF Prognosis: Fair Rehab Potential: Fair I certify that the patient requires SNF services: Yes Overall status at discharge: patient is progressing back to baseline Medical - DS: Qual - VTE Deep Vein Thrombosis/Pulmonary Embolism Present on Admission: No
[2017-11-10] MEDS ORDERED: MAGNESIUM HYDROXIDE 30 ML ORAL.SUSP PO PRN (12:47)
[2017-11-10] MEDS ORDERED: BISACODYL 10 MG SUPP.RECT PR PRN (12:47)
[2017-11-10] MEDS ORDERED: FLEETS ADULT ENEMA PR PRN (12:47)
[2017-11-10] MEDS: predniSONE 20 MG TABLET PO SCH (12:51)
[2017-11-10] MEDS: FLUoxetine HCL 20 MG CAPSULE PO SCH (12:52)
[2017-11-10] MEDS: ACETAMINOPHEN 325 MG TABLET PO PRN ×2 (12:52→20:34)
[2017-11-10] MEDS: LEVOTHYROXINE SODIUM 112 MCG TABLET PO SCH (12:52)
[2017-11-10] MEDS: ENOXAPARIN 40 MG/0.4 ML SYRINGE SQ SCH (12:54)
[2017-11-10] MEDS ORDERED: LORazepam 0.5 MG TABLET PO PRN (16:59)
[2017-11-10] MEDS: AZITHROMYCIN 250 MG TABLET PO SCH ×3 (17:39→20:35)
[2017-11-10] MEDS: MULTIVIT,THER IRON,CA,FA & MIN 1 TABLET PO SCH (18:07)
[2017-11-10] MEDS: OLANZapine 10 MG VIAL IM SCH (18:07)
[2017-11-10] MEDS: DOCUSATE SODIUM 100 MG CAPSULE PO SCH (20:34)
[2017-11-11] MEDS: ACETAMINOPHEN 325 MG TABLET PO PRN (03:53)
[2017-11-11] MEDS: METHOCARBAMOL 500 MG TABLET PO PRN (06:57)
[2017-11-11] MEDS: oxyCODONE HCL 5 MG TABLET PO PRN ×2 (06:57→10:52)
[2017-11-11] MEDS: MULTIVIT,THER IRON,CA,FA & MIN 1 TABLET PO SCH (09:53)
[2017-11-11] MEDS: ENOXAPARIN 40 MG/0.4 ML SYRINGE SQ SCH (09:53)
[2017-11-11] MEDS: predniSONE 20 MG TABLET PO SCH (09:53)
[2017-11-11] MEDS: FLUoxetine HCL 20 MG CAPSULE PO SCH (09:54)
[2017-11-11] MEDS: DOCUSATE SODIUM 100 MG CAPSULE PO SCH (09:54)
[2017-11-11] MEDS: LEVOTHYROXINE SODIUM 112 MCG TABLET PO SCH (09:54)
--- NOTE | 2017-11-11 15:56 | Discharge Summary ---
Medical - DS: Prov Patient information: Note initiated : 11/11/17 at 3:50 pm Service Date, if different from initiated Date: [] Patient: Patricia Jenkins 72 y/o F admitted on 11/05/17 for Left Hip Fracture. Date of admission: 11/05/17 14:18 Discharge date: 11/11/17 Primary care physician: Ryanne Bermudez Admitting clinician: Sylvain Mckeon Consults: 11/05/17 12:31 Consult to Physician [CONS] Stat Comment: Consulting Provider: Simran Anderson Reason For Exam: Physician to Consult Attending physician on discharge: Amy King Medical - DS: Meds - Discharge Medications Prescriptions: Enoxaparin [Lovenox] 40 mg SQ DAILY #28 syringe LORazepam [Ativan] 1 tab PO TID PRN #30 tab PRN Reason: agitation Methocarbamol [Robaxin] 500 mg PO TID #30 tab oxyCODONE HCL [Roxicodone] 5 mg PO Q4HP PRN #40 tab PRN Reason: Severe Pain Active and Home Medications: Home Medications multivitamin,dx-shbw-hfdoyoxg tablet 1 tab PO QDAY 04/25/15 [History Confirmed 11/05/17 Last Taken 10/16/17 08:00] fluoxetine 40 mg capsule 40 mg PO QDAY #30 cap 08/24/17 [Rx Confirmed 11/05/17 Last Taken 10/16/17 08:00] trazodone 50 mg tablet 50 mg PO QDAY PRN #90 tab 10/20/17 [Rx Confirmed Last Taken Unknown] levothyroxine 112 mcg tablet 112 mcg PO QDAY #30 tab 10/30/17 [Rx Confirmed Last Taken Unknown] Acetaminophen [Tylenol] 650 mg PO Q6HP PRN tablet 11/10/17 [Rx Last Taken Unknown] Enoxaparin [Lovenox] 40 mg SQ DAILY #28 syringe 11/10/17 [Rx Last Taken Unknown] Ipratropium/Albuterol [Duoneb] 3 ml NEB TID ampul.neb 11/10/17 [Rx Last Taken Unknown] LORazepam [Ativan] 1 tab PO TID PRN #30 tab 11/10/17 [Rx Last Taken Unknown] Methocarbamol [Robaxin] 500 mg PO TID #30 tab 11/10/17 [Rx Last Taken Unknown] oxyCODONE HCL [Roxicodone] 5 mg PO Q4HP PRN #40 tab 11/10/17 [Rx Last Taken Unknown] Medical - DS: Hosp Hospital course: ADDENDUM: The patient's planned discharge on 11/10/2017 did not occur. She remained hospitalized without significant change overnight. Now 25/07/2017 she is being discharged to swing bed for further skilled care. Hospital course, from Dr. Mckeon's discharge summary: Ms. Jenkins is a 72 year old F with h/o severe dementia, non ambulatory, presents to the ER after being sent to the ER by Dr Anderson from ortho [facility]. She is a resident of [facility]. The patient apparently fell down a couple weeks ago, she was seen in the ED here and it was found that she had a left hip nondisplaced fracture. At that time with extensive discussion with orthopedics and family given advanced dementia nonambulatory status it was decided to treat this conservatively. The patient apparently had 2 or 3 more falls after that. The patient was sent to the ER to clinic today by Dr. Anderson x-ray done in the clinic showed that the fracture is not displaced. The patient has significant pain as a result of this fracture. The patient was sent to the ED today for evaluation. On speaking with Dr. Anderson it is understood that the patients family now wishes for operative intervention. Medicine is consulted for admission and management of chronic medical condition. The patient is nonverbal unable to provide any history. by the bedside confirmed the story. Denies any fever. In the emergency room patient had a low-grade temperature of 99.4, tachycardic with a heart rate of 101 blood pressure 150/92 and she was saturating 95% on room air. Labs were unremarkable, urinalysis negative. Pro-calcitonin less than 0.05. Chest x-ray showed no acute infiltrate, moderate stable COPD. EKG done showed sinus tachycardia, QS pattern in V1 V2 V3, poor baseline, no significant change from EKG done in June 2016. There is no history of diabetes, no history of coronary kidney disease no history of congestive heart failure no history of myocardial infarction no history of strokes or TIAs. The patient went for surgery on day of admission at around 3 PM The patient is high risk for perioperative mortality given her advanced dementia, decreased effort tolerance. I do not think much can be done to optimize her further. She has some wheezing and is getting DuoNeb perioperatively. I reviewed the risks with the patient's verbalized understanding. Hip fracture- s/p surgery did well, no complications reported. Pt post op continued to be confused. patient will be discharged to Rehab. Lovnox 40mg daily for dvt prophylaxis. oxycodone for pain COPD exacerbation- Pre op the patient had some wheezing, post op she was drowsy and overseaded needing bipap, steroids and abx, duonebs given responded well, The rest of the stay in the hospital was uneventful. I have stopped the fentanyl patch and switched this to oxycodone. Discharge diagnosis: Left hip fracture - Time Spent with Patient Total time spent providing and/or coordinating discharge services on 11/11/2017: Greater than 30 minutes Medical - DS: Exam - Constitutional Vitals: Vital Signs Temp Pulse Resp BP BP Pulse Ox 11/11/17 12:00 97.8 F 72 16 98/59 95 11/11/17 08:00 97.7 F 76 16 94/56 95 11/11/17 03:40 98.2 F 70 16 151/77 95 11/11/17 00:00 98.6 F 74 16 124/78 98 11/10/17 22:41 18 11/10/17 20:00 97.4 F 82 16 113/71 98 11/10/17 16:00 98.2 F 90 22 118/71 95 11/10/17 15:57 86 14 142/78 96 Intake and Output 11/11/17 11/11/17 11/11/17 05:59 13:59 21:59 Intake Total 200 / 200 120 / 120 Output Total 400 / 400 Balance 199 / 199 -280 / -280 Intake: Oral 200 / 200 120 / 120 Output: Void Amount 400 / 400 # of times incontinent of urine Other: Meal Breakfast Percent of Meal Consumed 75% Feeding Ability Assist with Tray Set Up Stool Size Large Stool Color Brown Stool Consistency Dry and Hard # Bowel Movements 3 # of times incontinent of 1 Bowels Weight 117 lb Patient Weight 11/12/17 05:59 Weight 117 lb Additional comments: General: In no acute distress Chest: No wheezes, unlabored Cardiovascular: Regular Abdomen: Soft Musculoskeletal: Left lower extremity neurovascularly intact Neuro: Oriented to self, poor recall Medical - DS: Data Procedures and tests throughout hospitalization: Date of procedure: 11/05/17 Pre-op diagnosis: left displaced femoral neck fracture Post-op diagnosis: same Procedure: left hip kisha arthroplasty, cemented Grafts/Implants: Yes ([place] basic cemented stem size 5, 50mm head) Anesthesia: GLMA Findings: displaced femoral neck fracture Complications: none Surgeon: Simran Anderson Taste Tester: Maximo Dejesus Estimated blood loss (cc): 100 Tourniquet Time (Minutes): 0 Specimens Removed/Pathology: none sent Condition: stable Disposition: floor Medical - DS: A/P - Patient/Caregiver Discharge Instructions Activity: as per physical therapy Diet: Dysphagia Mech Alter (dysphagia 3) Additional Instructions: Discharge Instructions: Activity: as per physical therapy Diet: Dysphagia Mech Alter ([place] thick liquid) You have the Aquacel Ag dressing, leave in place for 7 days then remove. If dressing becomes soiled (turns black), remove and use gauze 4x4 dressing and silvasorb ointment and change daily. Keep incision clean and dry. To avoid constipation while taking any narcotic pain medication, take an over the counter stool softener/laxative. Call your physician for fevers above 100.5 or pain not controlled by medication. Your prescriptions are with your discharge information. Prescriptions: Enoxaparin [Lovenox] 40 mg SQ DAILY #28 syringe LORazepam [Ativan] 1 tab PO TID PRN #30 tab PRN Reason: agitation Methocarbamol [Robaxin] 500 mg PO TID #30 tab oxyCODONE HCL [Roxicodone] 5 mg PO Q4HP PRN #40 tab PRN Reason: Severe Pain Other Amb Orders: OT Discharge Order Location: None Selected Physical Therapy at Discharge - General Location: None Selected ST Discharge Order Location: None Selected - Follow up Plan Follow up with: Ryanne Bermudez, AILYN, [employer] [Primary Care Provider] - (Please call and schedule this appointment to fit your transportation needs.) Simran Anderson MD [Physician] - 11/16/17 11:10 am (please arrive 15-20 mins. Early for paperwork.) Disposition: er As Swing Bed ([facility]) Prognosis: Fair Rehab Potential: Fair I certify that the patient requires SNF services: Yes Overall status at discharge: patient is not back to baseline Medical - DS: Qual - VTE Deep Vein Thrombosis/Pulmonary Embolism Present on Admission: No
== END 2017-11-11 15:43 | disposition swing bed (61) | DRG 469 ==
LOC: ED 11:46 → MEDSUR 14:18 → ICU 19:09 → MEDSUR 11-06 17:30
PROVIDERS: ADMIT Internal Medicine; ATTEND Internal Medicine
PROC: HEMIHIP (2017-11-05 15:00)

== ENCOUNTER 2017-11-11 15:43 | Inpatient (IN) ==
[2017-11-11] MEDS ORDERED: MAGNESIUM HYDROXIDE 30 ML ORAL.SUSP PO PRN (15:57)
[2017-11-11] MEDS ORDERED: FLEETS ADULT ENEMA PR PRN (15:57)
[2017-11-11] MEDS ORDERED: LORazepam 0.5 MG TABLET PO PRN (15:57)
[2017-11-11] MEDS ORDERED: BISACODYL 10 MG SUPP.RECT PR PRN (15:57)
[2017-11-11] MEDS: ACETAMINOPHEN 325 MG TABLET PO PRN (19:25)
[2017-11-11] MEDS: DOCUSATE SODIUM 100 MG CAPSULE PO SCH (19:59)
[2017-11-11] MEDS: METHOCARBAMOL 500 MG TABLET PO PRN (19:59)
[2017-11-11] MEDS: oxyCODONE HCL 5 MG TABLET PO PRN (20:30)
[2017-11-12] MEDS: oxyCODONE HCL 5 MG TABLET PO PRN ×5 (00:30→19:24)
[2017-11-12] MEDS: METHOCARBAMOL 500 MG TABLET PO PRN ×2 (01:51→09:45)
[2017-11-12] MEDS ORDERED: predniSONE 20 MG TABLET PO SCH (08:00)
[2017-11-12] MEDS: LEVOTHYROXINE SODIUM 112 MCG TABLET PO SCH (09:45)
[2017-11-12] MEDS: FLUoxetine HCL 20 MG CAPSULE PO SCH (09:45)
[2017-11-12] MEDS: DOCUSATE SODIUM 100 MG CAPSULE PO SCH ×2 (09:46→21:48)
[2017-11-12] MEDS: MULTIVIT,THER IRON,CA,FA & MIN 1 TABLET PO SCH (09:47)
[2017-11-12] MEDS: ENOXAPARIN 40 MG/0.4 ML SYRINGE SQ SCH (09:48)
--- NOTE | 2017-11-12 17:04 | Internal Med History&Physical ---
Medical - H&P: HPI Patient information: Note initiated : 11/12/17 at 5:00 pm Service Date, if different from initiated Date: [] Patient: Patricia Jenkins a 72 y/o F admitted on 11/11/17 for Left Hip Fracture. Chief Complaint: Admission to swing bed following hip fracture History of present illness: Ms. Jenkins is a 72 year old F with a history of advanced dementia, COPD, hypothyroidism who initially was admitted to acute care for further care of a hip fracture. Details of that admission history are as follows (from Dr. Mckeon 's H&P): "Ms. Jenkins is a 72 year old F with h/o severe dementia, non ambulatory, presents to the ER after being sent to the ER by Dr Anderson from ortho clinic. She is a resident of [facility] The patient apparently fell down a couple weeks ago, she was seen in the ED here and it was found that she had a left hip nondisplaced fracture. At that time with extensive discussion with orthopedics and family given advanced dementia nonambulatory status it was decided to treat this conservatively. The patient apparently had 2 or 3 more falls after that. The patient was seen in the ER to clinic today by Dr. Anderson x-ray done in the clinic showed that the fracture is not displaced. The patient has significant pain as a result of this fracture. The patient was sent to the ED today for evaluation. On speaking with Dr. Anderson it is understood that the patients family now wishes for operative intervention. Medicine is consulted for admission and management of chronic medical condition. The patient is nonverbal unable to provide any history. by the bedside confirmed the story. Denies any fever. In the emergency room patient had a low-grade temperature of 99.4, tachycardic with a heart rate of 101 blood pressure 1 5092 and she was saturating 95% on room air. Labs were unremarkable, urinalysis negative. Pro-calcitonin less than 0.05. Chest x-ray showed no acute infiltrate, moderate stable COPD." During her acute hospitalization she underwent left hip hemiarthroplasty for repair of her left hip fracture, did not have postoperative complications. She did have sundowning consistent with her known advanced dementia. Several attempts were made at placement of skilled facilities, however staffing and her risk of impulsivity with her dementia precluded admission to other locales. She is now being admitted to swing bed at [facility] for further skilled debilitation following hip fracture and repair. ROS unobtainable: other (due to advanced dementia) Medical - H&P: H Medical history: Dementia (Chronic) COPD (chronic obstructive pulmonary disease) (Chronic) Osteoporosis (Chronic) Hyperlipidemia (Chronic) Hypothyroidism (Chronic) Upper respiratory infection (Acute) Frequent falls (Acute) Allergic rhinitis (Chronic) Shingles (Acute) Elevated blood pressure reading in office without diagnosis of hypertension ( Acute) Irritability and anger (Acute) Hematuria (Resolved) Surgical history: History of hemiarthroplasty of left hip (Acute 11/05/17) History of tonsillectomy (Resolved) Status post cataract surgery (Resolved ~01/2016) Pertinent family history: Mother Heart failure Memory impairment Sister Alzheimer's disease Asthma Son Type 1 diabetes mellitus, Onset Age: 9 Social history: Lives at [place]. Does not smoke, does not drink alcohol. Medical - H&P: Meds Home Medications Medication Instructions Recorded Confirmed Type trazodone 50 mg tablet 50 mg PO QDAY PRN #90 tab 10/20/17 11/11/17 Rx levothyroxine 112 mcg tablet 112 mcg PO QDAY #30 tab 10/30/17 11/11/17 Rx Allergies Allergy/AdvReac Type Severity Reaction Status Date / Time Penicillins Allergy Mild Hives Verified 11/07/17 07:05 Donepezil AdvReac Intermediate Hallucinati Verified 11/07/17 07:05 ng memantine [From Namenda] AdvReac Intermediate Hallucinati Verified 10/22/17 08: 12 ng cabbage AdvReac Mild Headache Uncoded 11/07/17 07:05 Medical - H&P: Exam - Constitutional Vitals: Temp Pulse Resp BP Pulse Ox 98.3 F 67 16 136/69 98 11/12/17 07:48 11/12/17 08:00 11/12/17 08:00 11/12/17 07:48 11/12/17 08:00 General appearance: no acute distress, thin - Head Head exam: Present: atraumatic, normal inspection - Eye Eye exam: Present: PERRL. Absent: conjunctival injection, scleral icterus - ENT ENT exam: Present: mucous membranes moist, normal oropharynx - Neck Neck exam: Present: normal inspection. Absent: lymphadenopathy, meningismus, thyromegaly - Respiratory Respiratory exam: Present: CTAB. Absent: accessory muscle use - Cardiovascular Cardiovascular exam: Present: normal rate and rhythm. Absent: gallop, rubs, systolic murmur - Expanded Cardiovascular Exam Peripheral pulses: 2+: carotid (L), carotid (R) - GI/Abdominal GI/Abdominal exam: Present: normal bowel sounds, soft. Absent: guarding, organomegaly, tenderness - Extremities Exam Extremities exam: Present: neurovascular intact. Absent: calf tenderness, joint swelling, pedal edema Additional comments: left hip surgical dressing intact and dry - Neurological Exam Neurological exam: Present: abnormal gait (uses walker after hip surgery), alert. Absent: motor sensory deficit, oriented X3 (oriented to self) Additional comments: severe memory impairment - Skin Skin exam: Present: dry, normal color. Absent: erythema Medical - H&P: A/P (1) Fracture of hip, left, closed Current visit: Yes Status: Chronic (2) Dementia Current visit: Yes Status: Chronic (3) Hypothyroidism Current visit: Yes Status: Chronic - Narrative A/P Narrative: 72-year-old female with advanced dementia, hypothyroidism, COPD now admitted to swing bed for further rehabilitation after left hemiarthroplasty for closed left hip fracture which occurred after a ground-level fall at her living facility. Left hip fracture. Now status post left hemiarthroplasty on 11/05/[address] Anderson. On swing bed for further skilled therapies to try to return towards baseline level of function. Plan: Swing bed admission, PT/OT/speech therapy, try to use acetaminophen for pain control and minimize opioids. Lovenox for DVT prophylaxis. Dementia. Severe with behavioral disturbances. Admit on trazodone at bedtime at home. Had been receiving lorazepam overnight while on acute care due to behavioral issues. Plan: Add Depakote sprinkles twice a day, resume trazodone at bedtime. We'll attempt to minimize lorazepam. COPD. Had evidence of exacerbation at admission. No longer requiring any bronchodilators. Remains on prednisone Plan: Taper steroids Hypothyroidism. Remains on replacement Plan: Continue current regimen. CODE STATUS: DNR Prophylaxis: Lovenox Medical - H&P: Qual - Stroke Symptom Onset Unknown: No - VTE Deep Vein Thrombosis/Pulmonary Embolism Present on Admission: No
[2017-11-12] MEDS ORDERED: LORazepam 2 MG/ML ORAL.SOL PO ONE (17:27)
[2017-11-12] MEDS: DIVALPROEX 125 MG CAP.SPRINK PO SCH (17:35)
[2017-11-12] MEDS: traZODone HCL 50 MG TABLET PO SCH (21:49)
[2017-11-13] MEDS: traZODone HCL 50 MG TABLET PO SCH ×2 (00:27→21:41)
[2017-11-13] MEDS: DOCUSATE SODIUM 100 MG CAPSULE PO SCH ×3 (00:27→21:42)
[2017-11-13] MEDS: ACETAMINOPHEN 325 MG TABLET PO PRN (03:02)
[2017-11-13] MEDS: METHOCARBAMOL 500 MG TABLET PO PRN (03:34)
[2017-11-13] MEDS: oxyCODONE HCL 5 MG TABLET PO PRN (03:34)
[2017-11-13] MEDS: DIVALPROEX 125 MG CAP.SPRINK PO SCH ×2 (08:39→17:23)
[2017-11-13] MEDS: ENOXAPARIN 40 MG/0.4 ML SYRINGE SQ SCH (08:40)
[2017-11-13] MEDS: MULTIVIT,THER IRON,CA,FA & MIN 1 TABLET PO SCH (08:40)
[2017-11-13] MEDS: predniSONE 20 MG TABLET PO SCH (08:40)
[2017-11-13] MEDS: FLUoxetine HCL 20 MG CAPSULE PO SCH (08:41)
[2017-11-13] MEDS: LEVOTHYROXINE SODIUM 112 MCG TABLET PO SCH (10:06)
--- NOTE | 2017-11-13 15:27 | Internal Med Progress Note ---
Medical - PN: Subj Patient information: Note initiated : 11/13/17 at 3:25 pm Service Date, if different from initiated Date: [] Patient: Patricia Jenkins a 72 y/o F admitted on 11/11/17 for Left Hip Fracture. Chief Complaint: f/u hip fracture, dementia. Interval history: 11/12 72-year-old with history of advanced dementia and left hip fracture, admitted to swing bed for further skilled therapy following left hip hemiarthroplasty. 11/13 Patient becoming combative, which is frequent occurrence. Started on Depakote sprinkles yesterday. Also resumed bedtime trazodone, which she been on prior to acute hospitalization. Also required a dose of lorazepam due to agitation and combativeness. Today has been calm her. is present at bedside most of the time. Has been helping her with ambulation with the walker. Pertinent ROS: Patient is unable to give review of systems due to dementia - Constitutional Vitals: Vital Signs Temp Pulse Resp BP Pulse Ox 97.6 F 70 20 97/57 100 11/13/17 08:00 11/12/17 20:00 11/13/17 08:00 11/13/17 08:00 11/13/17 08:00 Period Temp Pulse Resp BP Sys/Brewer Pulse Ox Last 24 Hr 97.3 F-97.6 F 70 16-20 97-158/57-77 99-100 Intake and Output 11/13/17 11/13/17 11/13/17 05:59 13:59 21:59 Output Total 261 / 261 100 / 100 Balance -261 / -261 -100 / -100 Weight 114 lb Patient Weight 11/14/17 05:59 Weight 114 lb Intake & Output: Intake & Output 11/13/17 11/13/17 11/13/17 05:59 13:59 21:59 Output Total 261 / 261 100 / 100 Balance -261 / -261 -100 / -100 Weight 114 lb Output: Void Amount 260 / 260 100 / 100 # of times incontinent of urine Other: Urine Appearance Clear Urine Color Straw Exam: General: Resting comfortably Respiratory: Respirations unlabored Cardiovascular: No edema Abdomen: Nondistended Skin: Dry, not diaphoretic Medical - PN: Obj Da - Labs Meds: Medications Acetaminophen (Tylenol) 650 mg PO Q6HP PRN PRN Reason: PAIN/FEVER > 101 Last Admin: 11/13/17 03:02 Dose: 650 mg Bisacodyl (Dulcolax) 10 mg LA Q2-3DAYS PRN PRN Reason: Constipation Divalproex Sodium (Depakote Sprinkles) 250 mg PO BIDAC [facility] Last Admin: 11/13/17 08:39 Dose: 250 mg Docusate Sodium (Colace) 100 mg PO BID [facility] Last Admin: 11/13/17 08:40 Dose: 100 mg Enoxaparin Sodium (Lovenox) 40 mg SQ DAILY [facility] Last Admin: 11/13/17 08:40 Dose: 40 mg Fluoxetine HCl (Prozac) 40 mg PO DAILY [facility] Last Admin: 11/13/17 08:41 Dose: 40 mg Iron Carb/Multivit/Refugio/Folic Acid (Multivitamin W/Minerals) 1 tab PO DAILY [facility] Last Admin: 11/13/17 08:40 Dose: 1 tab Levothyroxine Sodium (Synthroid) 112 mcg PO ACB [facility] Last Admin: 11/13/17 10:06 Dose: 112 mcg Magnesium Hydroxide (Milk Of Magnesia) 30 ml PO DAILYP PRN PRN Reason: Constipation Methocarbamol (Robaxin) 500 mg PO TIDP PRN PRN Reason: Muscle Spasm Last Admin: 11/13/17 03:34 Dose: 500 mg Oxycodone HCl (Roxicodone) 5 mg PO Q4HP PRN PRN Reason: PAIN LEVEL 3-6 Last Admin: 11/13/17 03:34 Dose: 5 mg Prednisone (Prednisone) 20 mg PO QAC [facility] Last Admin: 11/13/17 08:40 Dose: 20 mg Sodium Biphosphate/Sodium Phosphate (Fleets Adult) 1 dose LA Q3-4DAYS PRN PRN Reason: Constipation Trazodone HCl (Desyrel) 50 mg PO [facility] Last Admin: 11/13/17 00:27 Dose: 50 mg Medical - PN: A/P (1) Fracture of hip, left, closed Status: Chronic Current Visit: No (2) Dementia Status: Chronic Current Visit: No (3) Hypothyroidism Status: Chronic Current Visit: No - Narrative A/P Narrative: 72-year-old female with advanced dementia, hypothyroidism, COPD now admitted to swing bed for further rehabilitation after left hemiarthroplasty for closed left hip fracture which occurred after a ground-level fall at her living facility. Left hip fracture. Status post left hemiarthroplasty on 11/05/[address] Anderson. On swing bed for further skilled therapies to try to return towards baseline level of function. Plan: Contniue PT/OT/speech therapy, try to use acetaminophen for pain control and minimize opioids. Lovenox for DVT prophylaxis. Dementia with severe with behavioral disturbances. Added Depakote sprinkles as well as her preadmission trazodone. We'll try to minimize lorazepam, only use that on a one-time basis rather than keeping it as a PRN. Plan: Continue Depakote sprinkles twice a day, trazodone at bedtime. Minimize lorazepam. COPD. Had evidence of exacerbation at admission. No longer requiring any bronchodilators. Remains on prednisone. Plan: Continue to taper steroids, day 2 of 20 mg/d dose Hypothyroidism. Remains on replacement Plan: Continue current regimen. CODE STATUS: DNR Prophylaxis: Lovenox Medical - PN: Qual - Stroke Symptom Onset Unknown: No - VTE Deep Vein Thrombosis/Pulmonary Embolism Present on Admission: No
[2017-11-14] MEDS: ACETAMINOPHEN 325 MG TABLET PO PRN ×3 (05:50→23:30)
[2017-11-14] MEDS: LEVOTHYROXINE SODIUM 112 MCG TABLET PO SCH (07:49)
[2017-11-14] MEDS: DIVALPROEX 125 MG CAP.SPRINK PO SCH ×2 (07:49→16:04)
[2017-11-14] MEDS: predniSONE 20 MG TABLET PO SCH (07:49)
[2017-11-14] MEDS: ENOXAPARIN 40 MG/0.4 ML SYRINGE SQ SCH (08:58)
[2017-11-14] MEDS: MULTIVIT,THER IRON,CA,FA & MIN 1 TABLET PO SCH (08:58)
[2017-11-14] MEDS: FLUoxetine HCL 20 MG CAPSULE PO SCH (08:58)
[2017-11-14] MEDS: DOCUSATE SODIUM 100 MG CAPSULE PO SCH ×2 (08:58→21:53)
[2017-11-14] MEDS: traZODone HCL 50 MG TABLET PO SCH (21:53)
[2017-11-15] MEDS: oxyCODONE HCL 5 MG TABLET PO PRN (03:28)
[2017-11-15] MEDS: FLUoxetine HCL 20 MG CAPSULE PO SCH (08:26)
[2017-11-15] MEDS: LEVOTHYROXINE SODIUM 112 MCG TABLET PO SCH (08:26)
[2017-11-15] MEDS: DOCUSATE SODIUM 100 MG CAPSULE PO SCH (08:29)
[2017-11-15] MEDS: DIVALPROEX 125 MG CAP.SPRINK PO SCH ×2 (08:30→18:31)
[2017-11-15] MEDS: ACETAMINOPHEN 325 MG TABLET PO PRN ×2 (08:34→18:31)
[2017-11-15] MEDS: predniSONE 20 MG TABLET PO SCH (08:41)
[2017-11-15] MEDS: ENOXAPARIN 40 MG/0.4 ML SYRINGE SQ SCH (13:42)
--- NOTE | 2017-11-15 14:30 | Internal Med Progress Note ---
Medical - PN: Subj Patient information: Note initiated : 11/15/17 at 2:27 pm Service Date, if different from initiated Date: [] Patient: Patricia Jenkins 72 y/o F admitted on 11/11/17 for Left Hip Fracture. Chief Complaint: Follow-up hip fracture, dementia Interval history: 11/12 72-year-old with history of advanced dementia and left hip fracture, admitted to swing bed for further skilled therapy following left hip hemiarthroplasty. 11/13 Patient becoming combative, which is frequent occurrence. Started on Depakote sprinkles yesterday. Also resumed bedtime trazodone, which she been on prior to acute hospitalization. Also required a dose of lorazepam due to agitation and combativeness. Today has been calm her. is present at bedside most of the time. Has been helping her with ambulation with the walker. 11/15 Patient seen and examined. She is conversant, however cannot follow the conversation. Much less impulsive on Depakote. Also back on trazodone at bedtime, which was a medication. Was outside with her , in the wheelchair earlier today. Pertinent ROS: Patient unable to give meaningful review of systems, but does deny specifically when asked about leg pain. After that, responses ramble - Constitutional Vitals: Vital Signs Temp Pulse Resp BP Pulse Ox 97.7 F 78 20 142/70 97 11/15/17 07:14 11/14/17 23:22 11/15/17 07:14 11/15/17 07:14 11/15/17 07:14 Period Temp Pulse Resp BP Sys/Brewer Pulse Ox Last 24 Hr 97.7 F-98.8 F 78-85 16-20 124-142/63-70 97-100 Intake and Output 11/15/17 11/15/17 11/15/17 05:59 13:59 21:59 Intake Total 300 / 300 Output Total 227 / 227 Balance 299 / 299 -227 / -227 Intake & Output: Intake & Output 11/15/17 11/15/17 11/15/17 05:59 13:59 21:59 Intake Total 300 / 300 Output Total 227 / 227 Balance 299 / 299 -227 / -227 Intake: Oral 300 / 300 Output: Void Amount 225 / 225 # of times incontinent of urine 2 / 2 Other: Urine Appearance Cloudy Urine Color Pale Light Rajni Urine Odor Normal Strong # Voids 2 Exam: Dental: Sitting up in wheelchair, appears comfortable. Chest: Clear, no rales Cardiovascular: Regular Abdomen: Soft, no apparent tenderness Musculoskeletal: Left lower extremity neurovascularly intact Neuro: Alert, recognizes self, otherwise disoriented, moves all extremities equally, is walking with a somewhat shuffling gait with walker at times. Medical - PN: Obj Da - Labs Meds: Medications Acetaminophen (Tylenol) 650 mg PO Q6HP PRN PRN Reason: PAIN/FEVER > 101 Last Admin: 11/15/17 08:34 Dose: 650 mg Bisacodyl (Dulcolax) 10 mg [place] Q2-3DAYS PRN PRN Reason: Constipation Divalproex Sodium (Depakote Sprinkles) 250 mg PO BIDAC [facility] Last Admin: 11/15/17 08:30 Dose: 250 mg Docusate Sodium (Colace) 100 mg PO BID [facility] Last Admin: 11/15/17 08:29 Dose: 100 mg Enoxaparin Sodium (Lovenox) 40 mg SQ DAILY [facility] Last Admin: 11/15/17 13:42 Dose: 40 mg Fluoxetine HCl (Prozac) 40 mg PO DAILY [facility] Last Admin: 11/15/17 08:26 Dose: 40 mg Iron Carb/Multivit/Automotive Starter Repairer/Folic Acid (Multivitamin W/Minerals) 1 tab PO DAILY [facility] Last Admin: 11/14/17 08:58 Dose: 1 tab Levothyroxine Sodium (Synthroid) 112 mcg PO ACB [facility] Last Admin: 11/15/17 08:26 Dose: 112 mcg Magnesium Hydroxide (Milk Of Magnesia) 30 ml PO DAILYP PRN PRN Reason: Constipation Methocarbamol (Robaxin) 500 mg PO TIDP PRN PRN Reason: Muscle Spasm Last Admin: 11/13/17 03:34 Dose: 500 mg Oxycodone HCl (Roxicodone) 5 mg PO Q4HP PRN PRN Reason: PAIN LEVEL 3-6 Last Admin: 11/15/17 03:28 Dose: 5 [facility] Last Admin: 11/15/17 08:41 Dose: 20 mg Sodium Biphosphate/Sodium Phosphate (Fleets Adult) 1 dose ME Q3-4DAYS PRN PRN Reason: Constipation Trazodone HCl (Desyrel) 50 mg PO HS [facility] Last Admin: 11/14/17 21:53 Dose: 50 mg Medical - PN: A/P - Time Spent With Patient Total time spent is greater than 50% in coordination of care (as documented) at patient's floor/unit and/or counseling patient: (1) Fracture of hip, left, closed Status: Chronic Current Visit: No (2) Dementia Status: Chronic Current Visit: No (3) Hypothyroidism Status: Chronic Current Visit: No - Narrative A/P Narrative: 72-year-old female with advanced dementia, hypothyroidism, COPD now admitted to swing bed for further rehabilitation after left hemiarthroplasty for closed left hip fracture which occurred after a ground-level fall at her living facility. Left hip fracture. Status post left hemiarthroplasty on 11/05/[address] Anderson. On swing bed for further skilled therapies to try to return towards baseline level of function. Plan: Contniue PT/OT/speech therapy, try to use acetaminophen for pain control and minimize opioids. Lovenox for DVT prophylaxis. Dementia with severe with behavioral disturbances. Improved on Depakote sprinkles and her preadmission trazodone at bedtime. Minimize lorazepam, only use that on a one-time basis rather than keeping it as a PRN. Plan: Continue Depakote sprinkles twice a day, trazodone at bedtime. Minimize lorazepam. COPD. Had evidence of exacerbation at admission. No longer requiring any bronchodilators. Remains on prednisone. Plan: Continue to taper steroids, day 4 of 20 mg/d dose, will decrease to 10 mg day tomorrow, 11/16 Hypothyroidism. Remains on replacement Plan: Continue current regimen. CODE STATUS: DNR Prophylaxis: Lovenox Medical - PN: Qual - Stroke Symptom Onset Unknown: No - VTE Deep Vein Thrombosis/Pulmonary Embolism Present on Admission: No
[2017-11-15] MEDS: MULTIVIT,THER IRON,CA,FA & MIN 1 TABLET PO SCH (14:45)
[2017-11-16] MEDS: traZODone HCL 50 MG TABLET PO SCH ×2 (01:16→21:46)
[2017-11-16] MEDS: DOCUSATE SODIUM 100 MG CAPSULE PO SCH ×3 (01:16→21:46)
[2017-11-16] MEDS: ACETAMINOPHEN 325 MG TABLET PO PRN ×2 (01:33→08:12)
[2017-11-16] MEDS: oxyCODONE HCL 5 MG TABLET PO PRN ×2 (06:05→21:46)
[2017-11-16] MEDS: DIVALPROEX 125 MG CAP.SPRINK PO SCH ×2 (08:11→17:05)
[2017-11-16] MEDS: FLUoxetine HCL 20 MG CAPSULE PO SCH (08:12)
[2017-11-16] MEDS: LEVOTHYROXINE SODIUM 112 MCG TABLET PO SCH (08:12)
[2017-11-16] MEDS: predniSONE 10 MG TABLET PO SCH ×2 (08:12→18:44)
--- NOTE | 2017-11-16 14:17 | Internal Med Progress Note ---
Medical - PN: Subj Patient information: Note initiated : 11/16/17 at 2:15 pm Service Date, if different from initiated Date: [] Patient: Patricia Jenkins 72 y/o F admitted on 11/11/17 for Left Hip Fracture. Chief Complaint: [] Interval history: 11/12 72-year-old with history of advanced dementia and left hip fracture, admitted to swing bed for further skilled therapy following left hip hemiarthroplasty. 11/13 Patient becoming combative, which is frequent occurrence. Started on Depakote sprinkles yesterday. Also resumed bedtime trazodone, which she been on prior to acute hospitalization. Also required a dose of lorazepam due to agitation and combativeness. Today has been calm her. is present at bedside most of the time. Has been helping her with ambulation with the walker. 11/15 Patient seen and examined. She is conversant, however cannot follow the conversation. Much less impulsive on Depakote. Also back on trazodone at bedtime, which was a medication. Was outside with her , in the wheelchair earlier today. 11/17 Review of Systems: - Constitutional Vitals: Vital Signs Temp Pulse Resp BP Pulse Ox 99.3 F H 78 16 114/78 97 11/16/17 09:08 11/14/17 23:22 11/16/17 09:08 11/16/17 09:08 11/15/17 07:14 Period Temp Pulse Resp BP Sys/Brewer Pulse Ox Last 24 Hr 99.3 F 16 114/78 Intake and Output 11/16/17 11/16/17 11/16/17 05:59 13:59 21:59 Intake Total 240 / 240 Output Total 351 / 351 Balance -111 / -111 Intake & Output: Intake & Output 11/16/17 11/16/17 11/16/17 05:59 13:59 21:59 Intake Total 240 / 240 Output Total 351 / 351 Balance -111 / -111 Intake: Oral 240 / 240 Output: Void Amount 350 / 350 # of times incontinent of urine Other: Meal Nourishment/Supplement Percent of Meal Consumed 100% Urine Appearance Clear Urine Color Bright Yellow Urine Odor Normal Stool Size Large Stool Color Brown Stool Consistency Formed # Bowel Movements 1 Exam: General: Alert, Awake, No acute Distress HEENT: EOMI, CV: RRR, No murmurs, normal s1/s2 Pulm: Clear b/l, no wheezing/rhonchi/rales Abd: soft, nontender, +BS x4 Ext: no clubbing/cyanosis/edema Neuro: Alert, disoriented chronic, moves all extremities Skin: warm/dry Medical - PN: Obj Da - Labs Meds: Medications Acetaminophen (Tylenol) 650 mg PO Q6HP PRN PRN Reason: PAIN/FEVER > 101 Last Admin: 11/16/17 08:12 Dose: 650 mg Bisacodyl (Dulcolax) 10 mg [place] Q2-3DAYS PRN PRN Reason: Constipation Divalproex Sodium (Depakote Sprinkles) 250 mg PO BIDAC [facility] Last Admin: 11/16/17 08:11 Dose: 250 mg Docusate Sodium (Colace) 100 mg PO BID [facility] Last Admin: 11/16/17 08:12 Dose: 100 mg Enoxaparin Sodium (Lovenox) 40 mg SQ DAILY [facility] Last Admin: 11/15/17 13:42 Dose: 40 mg Fluoxetine HCl (Prozac) 40 mg PO DAILY [facility] Last Admin: 11/16/17 08:12 Dose: 40 mg Iron Carb/Multivit/[place]/Folic Acid (Multivitamin W/Minerals) 1 tab PO DAILY [facility] Last Admin: 11/15/17 14:45 Dose: Not Given Levothyroxine Sodium (Synthroid) 112 mcg PO ACB [facility] Last Admin: 11/16/17 08:12 Dose: 112 mcg Magnesium Hydroxide (Milk Of Magnesia) 30 ml PO DAILYP PRN PRN Reason: Constipation Last Admin: 11/15/17 18:38 Dose: 30 ml Methocarbamol (Robaxin) 500 mg PO TIDP PRN PRN Reason: Muscle Spasm Last Admin: 11/13/17 03:34 Dose: 500 mg Oxycodone HCl (Roxicodone) 5 mg PO Q4HP PRN PRN Reason: PAIN LEVEL 3-6 Last Admin: 11/16/17 06:05 Dose: 5 mg Prednisone (Prednisone) 10 mg PO [facility] Stop: 11/19/17 08:01 Last Admin: 11/16/17 08:12 Dose: 10 mg Sodium Biphosphate/Sodium Phosphate (Fleets Adult) 1 dose [place] Q3-4DAYS PRN PRN Reason: Constipation Trazodone HCl (Desyrel) 50 mg PO HS [facility] Last Admin: 11/16/17 01:16 Dose: Not Given Medical - PN: A/P - Time Spent With Patient Total time spent is greater than 50% in coordination of care (as documented) at patient's floor/unit and/or counseling patient: Medical - PN: Qual - Stroke Symptom Onset Unknown: No - VTE Deep Vein Thrombosis/Pulmonary Embolism Present on Admission: No
[2017-11-16] MEDS: ENOXAPARIN 40 MG/0.4 ML SYRINGE SQ SCH (15:08)
[2017-11-16] MEDS: MULTIVIT,THER IRON,CA,FA & MIN 1 TABLET PO SCH (17:05)
--- NOTE | 2017-11-17 06:57 | Internal Med Progress Note ---
Medical - PN: Subj Patient information: Note initiated : 11/17/17 at 6:54 am Service Date, if different from initiated Date: [] Patient: Patricia Jenkins 72 y/o F admitted on 11/11/17 for Left Hip Fracture. Chief Complaint: [] Interval history: 11/12 72-year-old with history of advanced dementia and left hip fracture, admitted to swing bed for further skilled therapy following left hip hemiarthroplasty. 11/13 Patient becoming combative, which is frequent occurrence. Started on Depakote sprinkles yesterday. Also resumed bedtime trazodone, which she been on prior to acute hospitalization. Also required a dose of lorazepam due to agitation and combativeness. Today has been calm her. is present at bedside most of the time. Has been helping her with ambulation with the walker. 11/15 Patient seen and examined. She is conversant, however cannot follow the conversation. Much less impulsive on Depakote. Also back on trazodone at bedtime, which was a medication. Was outside with her , in the wheelchair earlier today. 11/17 now overnight events. family at bedside. Review of Systems: unablet to gather given patient's advanced dementia - Constitutional Vitals: Vital Signs Temp Pulse Resp BP Pulse Ox 98.7 F 79 22 158/59 99 11/16/17 19:05 11/16/17 19:05 11/16/17 19:05 11/16/17 19:05 11/16/17 19:05 Period Temp Pulse Resp BP Sys/Brewer Pulse Ox Last 24 Hr 98.7 F-99.3 F 79 16-22 114-158/59-78 99 Intake and Output 11/16/17 11/17/17 11/17/17 21:59 05:59 13:59 Intake Total 0 / 0 Output Total 200 / 200 150 / 150 Balance -200 / -200 -150 / -150 Weight 51.256 kg Intake & Output: Intake & Output 11/16/17 11/17/17 11/17/17 21:59 05:59 13:59 Intake Total 0 / 0 Output Total 200 / 200 150 / 150 Balance -200 / -200 -150 / -150 Weight 51.256 kg Intake: Oral 0 / 0 Output: Void Amount 200 / 200 150 / 150 Other: Meal Nourishment/Supplement Percent of Meal Consumed 50% Urine Appearance Clear Clear Urine Color Bright Yellow Bright Yellow Exam: General: Alert, Awake, No acute Distress HEENT: EOMI, CV: RRR, No murmurs, Pulm: Clear b/l, no wheezing/rhonchi/rales Abd: soft, nontender, +BS x4 Ext: no clubbing/cyanosis/edema Neuro: Alert, disoriented chronic, moves all extremities Skin: warm/dry Medical - PN: Obj Da - Labs Meds: Medications Acetaminophen (Tylenol) 650 mg PO Q6HP PRN PRN Reason: PAIN/FEVER > 101 Last Admin: 11/16/17 08:12 Dose: 650 mg Bisacodyl (Dulcolax) 10 mg [place] Q2-3DAYS PRN PRN Reason: Constipation [facility]ival[facility]ex [facility] Last Admin: 11/16/17 17:05 Dose: 250 mg Docusate Sodium (Colace) 100 mg PO BID [facility] Last Admin: 11/16/17 21:46 Dose: 100 mg Enoxaparin Sodium (Lovenox) 40 mg SQ DAILY [facility] Last Admin: 11/16/17 15:08 Dose: 40 mg Fluoxetine HCl (Prozac) 40 mg PO DAILY [facility] Last Admin: 11/16/17 08:12 Dose: 40 mg Iron Carb/Multivit/Ophthalmic Pathologist/Folic Acid (Multivitamin W/Minerals) 1 tab PO DAILY [facility] Last Admin: 11/16/17 17:05 Dose: Not Given Levothyroxine Sodium (Synthroid) 112 mcg PO ACB [facility] Last Admin: 11/16/17 08:12 Dose: 112 mcg Magnesium Hydroxide (Milk Of Magnesia) 30 ml PO DAILYP PRN PRN Reason: Constipation Last Admin: 11/15/17 18:38 Dose: 30 ml Methocarbamol (Robaxin) 500 mg PO TIDP PRN PRN Reason: Muscle Spasm Last Admin: 11/13/17 03:34 Dose: 500 mg Oxycodone HCl (Roxicodone) 5 mg PO Q4HP PRN PRN Reason: PAIN LEVEL 3-6 Last Admin: 11/16/17 21:46 Dose: 5 mg Pred[facility]) [facility] Stop: 11/19/17 08:01 Last Admin: 11/16/17 18:44 Dose: Not Given Sodium Biphosphate/Sodium Phosphate (Fleets Adult) 1 dose [place] Q3-4DAYS PRN PRN Reason: Constipation Trazodone HCl (Desyrel) 50 mg PO HS [facility] Last Admin: 11/16/17 21:46 Dose: 50 mg Medical - PN: A/P - Time Spent With Patient Total time spent is greater than 50% in coordination of care (as documented) at patient's floor/unit and/or counseling patient: - Narrative A/P Narrative: Left hip fracture. Status post left hemiarthroplasty on 11/05/[address] Anderson. On swing bed for further skilled therapies to try to return towards baseline level of function. Plan: Contniue PT/OT/speech therapy, try to use acetaminophen for pain control and minimize opioids. Advanced Dementia with behavioral disturbances. Improved on Depakote sprinkles and her preadmission trazodone at bedtime. Minimize lorazepam, only use that on a one-time basis rather than keeping it as a PRN. Plan: Continue Depakote sprinkles twice a day, trazodone at bedtime. Minimize lorazepam. COPD. Had evidence of exacerbation at admission. No longer requiring any bronchodilators. Remains on prednisone. Plan: Continue to taper steroids, decreased to 10mg today Hypothyroidism. Remains on replacement Plan: Continue current regimen. Dysphagia: diet per ST CODE STATUS: DNR Prophylaxis: Lovenox Medical - PN: Qual - Stroke Symptom Onset Unknown: No - VTE Deep Vein Thrombosis/Pulmonary Embolism Present on Admission: No
[2017-11-17] MEDS: FLUoxetine HCL 20 MG CAPSULE PO SCH (08:58)
[2017-11-17] MEDS: DIVALPROEX 125 MG CAP.SPRINK PO SCH ×2 (08:58→18:01)
--- NOTE | 2017-11-17 12:23 | Discharge Summary ---
Medical - DS: Prov Patient information: Note initiated : 11/17/17 at 12:19 pm Service Date, if different from initiated Date: [] Patient: Patricia Jenkins 72 y/o F admitted on 11/11/17 for Left Hip Fracture. Chief Complaint: [] Date of admission: 11/11/17 15:43 Discharge date: 11/18/17 Primary care physician: Ryanne Bermudez Consults: 11/11/17 15:57 Consult to Physician [CONS] Stat Comment: Consulting Provider: Simran Anderson Reason For Exam: Physician to Consult Medical - DS: Meds - Discharge Medications Prescriptions: Bisacodyl [Dulcolax] 10 mg [place] Q2-3DAYS PRN #30 supp.rect PRN Reason: Constipation Divalproex [Depakote Sprinkles] 250 mg PO BIDAC #10 cap.sprink Enoxaparin [Lovenox] 40 mg SQ DAILY #23 syringe Active and Home Medications: Home Medications multivitamin,po-iypo-htzakapf tablet 1 tab PO QDAY 04/25/15 [History Confirmed 11/11/17 Last Taken 11/11/17] fluoxetine 40 mg capsule 40 mg PO QDAY #30 cap 08/24/17 [Rx Confirmed 11/11/17 Last Taken 11/11/17] trazodone 50 mg tablet 50 mg PO QDAY PRN #90 tab 10/20/17 [Rx Confirmed Last Taken Unknown] levothyroxine 112 mcg tablet 112 mcg PO QDAY #30 tab 10/30/17 [Rx Confirmed 07/24 Last Taken Unknown] Acetaminophen [Tylenol] 650 mg PO Q6HP PRN tablet 11/10/17 [Rx Confirmed Last Taken 11/11/17] Enoxaparin [Lovenox] 40 mg SQ DAILY #28 syringe 11/10/17 [Rx Confirmed 11/11/17 Last Taken 11/11/17] Ipratropium/Albuterol [Duoneb] 3 ml NEB TID ampul.neb 11/10/17 [Rx Confirmed Last Taken Unknown] LORazepam [Ativan] 1 tab PO TID PRN #30 tab 11/10/17 [Rx Confirmed 11/11/17 Last Taken 11/11/17] Methocarbamol [Robaxin] 500 mg PO TID #30 tab 11/10/17 [Rx Confirmed 11/11/17 Last Taken 11/11/17] oxyCODONE HCL [Roxicodone] 5 mg PO Q4HP PRN #40 tab 11/10/17 [Rx Confirmed 11/11 Last Taken 11/11/17] Medical - DS: Hosp Hospital course: Mr. Jenkins is a 72 year old F 11/12 72-year-old with history of advanced dementia and left hip fracture, admitted to swing bed for further skilled therapy following left hip hemiarthroplasty. 11/13 Patient becoming combative, which is frequent occurrence. Started on Depakote sprinkles yesterday. Also resumed bedtime trazodone, which she been on prior to acute hospitalization. Also required a dose of lorazepam due to agitation and combativeness. Today has been calm her. is present at bedside most of the time. Has been helping her with ambulation with the walker. 11/15 Patient seen and examined. She is conversant, however cannot follow the conversation. Much less impulsive on Depakote. Also back on trazodone at bedtime, which was a medication. Was outside with her , in the wheelchair earlier today. 11/17 now overnight events. family at bedside. 11/18 patient accepted to facility. no overnight events and stable for d/c. Discharge diagnosis: To fracture advanced dementia with behaviors COPD hypothyroidism dysphasia - Time Spent with Patient Total time spent providing and/or coordinating discharge services: Greater than 30 minutes Medical - DS: Exam - Constitutional Vitals: Vital Signs Temp Pulse Resp BP Pulse Ox 11/17/17 07:24 98.9 F 14 131/66 99 11/16/17 19:05 98.7 F 79 22 158/59 99 Intake and Output 11/16/17 11/17/17 11/17/17 21:59 05:59 13:59 Intake Total 0 / 0 Output Total 200 / 200 150 / 150 Balance -200 / -200 -150 / -150 Intake: Oral 0 / 0 Output: Void Amount 200 / 200 150 / 150 Other: Meal Nourishment/Supplement Percent of Meal Consumed 50% Urine Appearance Clear Clear Urine Color Bright Yellow Bright Yellow Weight 51.256 kg Medical - DS: A/P - Patient/Caregiver Discharge Instructions Activity: as per physical therapy Diet: Dysphagia Advanced Prescriptions: Bisacodyl [Dulcolax] 10 mg [place] Q2-3DAYS PRN #30 supp.rect PRN Reason: Constipation Divalproex [Depakote Sprinkles] 250 mg PO BIDAC #10 cap.sprink Enoxaparin [Lovenox] 40 mg SQ DAILY #23 syringe oxyCODONE HCL [Roxicodone] 5 mg PO Q6HP PRN #10 tablet PRN Reason: Pain Level 3-6 predniSONE [Prednisone] 10 mg PO [facility] #1 tab - Follow up Plan Disposition: Xfer SNF Prognosis: Fair Rehab Potential: Fair I certify that the patient requires SNF services: Yes Medical - DS: Qual - VTE Deep Vein Thrombosis/Pulmonary Embolism Present on Admission: No
[2017-11-17] MEDS: LEVOTHYROXINE SODIUM 112 MCG TABLET PO SCH (17:49)
[2017-11-17] MEDS: DOCUSATE SODIUM 100 MG CAPSULE PO SCH ×2 (17:50→21:54)
[2017-11-17] MEDS: MULTIVIT,THER IRON,CA,FA & MIN 1 TABLET PO SCH (17:50)
[2017-11-17] MEDS: predniSONE 10 MG TABLET PO SCH (17:50)
[2017-11-17] MEDS: ENOXAPARIN 40 MG/0.4 ML SYRINGE SQ SCH (18:00)
[2017-11-17] MEDS: ACETAMINOPHEN 325 MG TABLET PO PRN (20:15)
[2017-11-17] MEDS: traZODone HCL 50 MG TABLET PO SCH (21:54)
[2017-11-18] MEDS: DIVALPROEX 125 MG CAP.SPRINK PO SCH ×2 (06:36→16:55)
[2017-11-18] MEDS: LEVOTHYROXINE SODIUM 112 MCG TABLET PO SCH (06:37)
--- NOTE | 2017-11-18 07:02 | Internal Med Progress Note ---
Medical - PN: Subj Patient information: Note initiated : 11/18/17 at 7:01 am Service Date, if different from initiated Date: [] Patient: Patricia Jenkins 72 y/o F admitted on 11/11/17 for Left Hip Fracture. Chief Complaint: [] Interval history: 11/12 72-year-old with history of advanced dementia and left hip fracture, admitted to swing bed for further skilled therapy following left hip hemiarthroplasty. 11/13 Patient becoming combative, which is frequent occurrence. Started on Depakote sprinkles yesterday. Also resumed bedtime trazodone, which she been on prior to acute hospitalization. Also required a dose of lorazepam due to agitation and combativeness. Today has been calm her. is present at bedside most of the time. Has been helping her with ambulation with the walker. 11/15 Patient seen and examined. She is conversant, however cannot follow the conversation. Much less impulsive on Depakote. Also back on trazodone at bedtime, which was a medication. Was outside with her , in the wheelchair earlier today. 11/17 now overnight events. family at bedside. Review of Systems: unablet to gather given patient's advanced dementia 11/18 no new issues. at bedside. Review of Systems: unablet to gather given patient's advanced dementia - Constitutional Vitals: Vital Signs Temp Pulse Resp BP Pulse Ox 98.4 F 98 H 18 125/52 97 11/17/17 20:00 11/17/17 20:00 11/17/17 20:00 11/17/17 20:00 11/17/17 20:00 Period Temp Pulse Resp BP Sys/Brewer Pulse Ox Last 24 Hr 98.0 F-98.9 F 90-98 14-18 119-131/52-82 96-99 Intake and Output 11/17/17 11/18/17 11/18/17 21:59 05:59 13:59 Intake Total 480 / 480 60 / 60 240 / 240 Output Total 801 / 801 250 / 250 Balance -321 / -321 -190 / -190 240 / 240 Weight 50.349 kg Intake & Output: Intake & Output 11/17/17 11/18/17 11/18/17 21:59 05:59 13:59 Intake Total 480 / 480 60 / 60 240 / 240 Output Total 801 / 801 250 / 250 Balance -321 / -321 -190 / -190 240 / 240 Weight 50.349 kg Intake: Oral 480 / 480 60 / 60 240 / 240 Output: Urine Catheter Amount 800 / 800 Void Amount 250 / 250 # of times incontinent of urine Other: Meal Dinner Magic Cup Percent of Meal Consumed 50% 100% Feeding Ability Needs Supervision Independent Urine Appearance Clear Urine Color Pale Urine Odor Normal Exam: General: Alert, Awake, No acute Distress HEENT: EOMI, CV: RRR, No murmurs, Pulm: Clear b/l, no wheezing/rhonchi/rales Abd: soft, nontender, +BS x4 Ext: no clubbing/cyanosis/edema Neuro: Alert, moves all extremities Skin: warm/dry Medical - PN: Obj Da - Labs Meds: Medications Acetaminophen (Tylenol) 650 mg PO Q6HP PRN PRN Reason: PAIN/FEVER > 101 Last Admin: 11/17/17 20:15 Dose: 650 mg Bisacodyl (Dulcolax) 10 mg SC Q2-3DAYS PRN PRN Reason: Constipation Divalproex Sodium (Depakote Sprinkles) 250 mg PO BIDAC [facility] Last Admin: 11/18/17 06:36 Dose: 250 mg Docusate Sodium (Colace) 100 mg PO BID [facility] Last Admin: 11/17/17 21:54 Dose: 100 mg Enoxaparin Sodium (Lovenox) 40 mg SQ DAILY [facility] Last Admin: 11/17/17 18:00 Dose: 40 mg Fluoxetine HCl (Prozac) 40 mg PO DAILY [facility] Last Admin: 11/17/17 08:58 Dose: 40 mg Iron Carb/Multivit/Crenshaw/Folic Acid (Multivitamin W/Minerals) 1 tab PO DAILY [facility] Last Admin: 11/17/17 17:50 Dose: Not Given Levothyroxine Sodium (Synthroid) 112 mcg PO ACB [facility] Last Admin: 11/18/17 06:37 Dose: 112 mcg Magnesium Hydroxide (Milk Of Magnesia) 30 ml PO DAILYP PRN PRN Reason: Constipation Last Admin: 11/15/17 18:38 Dose: 30 ml Methocarbamol (Robaxin) 500 mg PO TIDP PRN PRN Reason: Muscle Spasm Last Admin: 11/13/17 03:34 Dose: 500 mg Oxycodone HCl (Roxicodone) 5 mg PO Q4HP PRN PRN Reason: PAIN LEVEL 3-6 Last Admin: 11/16/17 21:46 Dose: 5 mg Prednisone (Prednisone) 10 mg PO [facility] Stop: 11/19/17 08:01 Last Admin: 11/17/17 17:50 Dose: Not Given Sodium Biphosphate/Sodium Phosphate (Fleets Adult) 1 dose SC Q3-4DAYS PRN PRN Reason: Constipation Trazodone HCl (Desyrel) 50 mg PO [facility] Last Admin: 11/17/17 21:54 Dose: 50 mg Medical - PN: A/P - Time Spent With Patient Total time spent is greater than 50% in coordination of care (as documented) at patient's floor/unit and/or counseling patient: - Narrative A/P Narrative: Left hip fracture. Status post left hemiarthroplasty on 11/05/[address] Anderson. On swing bed for further skilled therapies to try to return towards baseline level of function. Plan: Contniue PT/OT/speech therapy, try to use acetaminophen for pain control and minimize opioids. Advanced Dementia with behavioral disturbances. Improved on Depakote sprinkles and her preadmission trazodone at bedtime. Plan: Continue Depakote sprinkles twice a day, trazodone at bedtime. COPD. Had evidence of exacerbation at admission. No longer requiring any bronchodilators. Remains on prednisone. Plan: Continue to taper steroids, decreased to 10mg today Hypothyroidism. Remains on replacement Plan: Continue current regimen. Dysphagia: diet per ST CODE STATUS: DNR Prophylaxis: Lovenox awaiting placement Medical - PN: Qual - Stroke Symptom Onset Unknown: No - VTE Deep Vein Thrombosis/Pulmonary Embolism Present on Admission: No
[2017-11-18] MEDS: ENOXAPARIN 40 MG/0.4 ML SYRINGE SQ SCH (08:25)
[2017-11-18] MEDS: MULTIVIT,THER IRON,CA,FA & MIN 1 TABLET PO SCH (08:25)
[2017-11-18] MEDS: DOCUSATE SODIUM 100 MG CAPSULE PO SCH ×2 (08:25→20:25)
[2017-11-18] MEDS: FLUoxetine HCL 20 MG CAPSULE PO SCH (08:25)
[2017-11-18] MEDS: predniSONE 10 MG TABLET PO SCH (08:26)
[2017-11-18] MEDS: traZODone HCL 50 MG TABLET PO SCH (20:25)
[2017-11-19] MEDS: DIVALPROEX 125 MG CAP.SPRINK PO SCH (07:05)
[2017-11-19] MEDS: LEVOTHYROXINE SODIUM 112 MCG TABLET PO SCH (07:05)
[2017-11-19] MEDS: FLUoxetine HCL 20 MG CAPSULE PO SCH (09:40)
[2017-11-19] MEDS: DOCUSATE SODIUM 100 MG CAPSULE PO SCH (09:40)
[2017-11-19] MEDS: predniSONE 10 MG TABLET PO SCH (09:40)
[2017-11-19] MEDS: MULTIVIT,THER IRON,CA,FA & MIN 1 TABLET PO SCH (09:40)
[2017-11-19] MEDS: ENOXAPARIN 40 MG/0.4 ML SYRINGE SQ SCH (09:40)
--- NOTE | 2017-11-27 07:16 | Orthopedic Procedure Note ---
Date of procedure: Note initiated : 11/27/17 at 7:14 am Service Date, if different from initiated Date: [19 Nov 2017] Pre-op diagnosis: left hip fracture Post-op diagnosis: same Procedure: staple removal Findings: well healing wound, no drainage or evidence of infection Grafts/Implants: none Surgeon: Simran Anderson Estimated blood loss: 0 Pathology: none sent Description of procedure: yomaira removed. steri's placed Condition: stable Disposition: no change
== END 2017-11-19 13:09 | DRG 536 ==
LOC: MEDSUR 15:43
PROVIDERS: ADMIT Internal Medicine; ATTEND Internal Medicine

== ENCOUNTER 2017-12-04 13:35 | Inpatient (IN) ==
--- NOTE | 2017-12-04 13:46 | Emergency Department Note ---
SOB HPI - General Chief Complaint: Shortness of Breath/Dyspnea Stated Complaint: fever, sob Time Seen by Provider: 12/04/17 13:42 Source: patient Mode of arrival: ambulatory Limitations: no limitations - History of Present Illness This patient has dementia and lives at [facility]. Last couple days she has had a little sinus congestion and trouble swallowing. She is on a thickened diet and has had some coughing with eating. She cannot give me any history. Her is here with her. - Related Data Home Medications Medication Instructions Recorded Confirmed multivitamin,wy-[id number]-nyrtblen 1 tab PO QDAY 04/25/15 11/11/17 tablet Previous Rx's Medication Instructions Recorded fluoxetine 40 mg capsule 40 mg PO QDAY #30 cap 08/24/17 trazodone 50 mg tablet 50 mg PO QDAY PRN #90 tab 10/20/17 levothyroxine 112 mcg tablet 112 mcg PO QDAY #30 tab 10/30/17 Acetaminophen [Tylenol] 650 mg PO Q6HP PRN tablet 11/10/17 Enoxaparin [Lovenox] 40 mg SQ DAILY #28 syringe 11/10/17 Ipratropium/Albuterol [Duoneb] 3 ml NEB TID ampul.neb 11/10/17 LORazepam [Ativan] 1 tab PO TID PRN #30 tab 11/10/17 Methocarbamol [Robaxin] 500 mg PO TID #30 tab 11/10/17 oxyCODONE HCL [Roxicodone] 5 mg PO Q4HP PRN #40 tab 11/10/17 Bisacodyl [Dulcolax] 10 mg MA Q2-3DAYS PRN #30 supp.rect 11/17/17 Divalproex [Depakote Sprinkles] 250 mg PO BIDAC #10 cap.sprink 11/17/17 Enoxaparin [Lovenox] 40 mg SQ DAILY #23 syringe 11/17/17 oxyCODONE HCL [Roxicodone] 5 mg PO Q6HP PRN #10 tab 11/18/17 predniSONE [Prednisone] 10 mg PO QAMCC #1 tab 11/18/17 Allergies Allergy/AdvReac Type Severity Reaction Status Date / Time Penicillins Allergy Mild Hives Verified 11/07/17 07:05 Donepezil AdvReac Intermediate Hallucinati Verified 11/07/17 07:05 ng memantine [From Namenda] AdvReac Intermediate Hallucinati Verified 10/22/17 08: 12 ng cabbage AdvReac Mild Headache Uncoded 11/07/17 07:05 Review of Systems All systems ED: reviewed and negative except as stated. Past Medical History - Past Medical History [facility] Narrative: Medical History (Last Updated 11/12/17 @ 17:06 by Amy King MD) Upper respiratory infection (Acute) Frequent falls (Acute) Dementia (Chronic) Allergic rhinitis (Chronic) Shingles (Acute) Elevated blood pressure reading in office without diagnosis of hypertension ( Acute) Irritability and anger (Acute) COPD (chronic obstructive pulmonary disease) (Chronic) Osteoporosis (Chronic) Memory impairment (Chronic) Hyperlipidemia (Chronic) Hypothyroidism (Chronic) Hematuria (Resolved) Past Surgical History (Last Updated 11/12/17 @ 17:07 by Amy King MD) History of hemiarthroplasty of left hip (Acute 11/05/17) History of tonsillectomy (Resolved) Status post cataract surgery (Resolved ~01/2016) Family History (Last Reviewed 04/22/17 @ 11:27 by Ryanne Bermudez, AILYN, PRINTED CIRCUIT BOARD DESIGNER) Mother Heart failure Memory impairment Sister Alzheimer's disease Asthma Son Type 1 diabetes mellitus, Onset Age: 9 Medical history: Reports: dementia, hyperlipidemia, osteoporosis, thyroid disease Psychiatric history: Reports: anxiety 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 Absent: distention, tenderness Neurological: Present: alert Psychiatric: Present: normal affect Skin: Present: warm, dry, intact Course Vital Signs Temperature 99.7 F H 12/04/17 13:35 Pulse Rate 92 H 12/04/17 13:35 Respiratory Rate 20 12/04/17 13:35 Blood Pressure 128/95 12/04/17 13:35 Pulse Oximetry (%) 99 12/04/17 13:35 Temperature 99.7 F H 12/04/17 13:35 Pulse Rate 92 H 12/04/17 13:35 Respiratory Rate 20 12/04/17 13:35 Blood Pressure 128/95 12/04/17 13:35 Pulse Oximetry (%) 99 12/04/17 13:35 Shortness of Breath/Dyspnea - MDM Narrative Medical decision making narrative: Chest x-ray shows a left lower lobe infiltrate and lab work is not too remarkable. Patient was given Levaquin and Rocephin IV and will be admitted to the hospital by Dr. Mckeon. - Lab Data Lab results reviewed: Yes I reviewed the patient's lab results. Result diagrams: 12/04/17 13:51 12/04/17 13:51 Lab Results 12/04/17 12/04/17 12/04/17 Range/Units 13:51 13:51 13:51 WBC 9.0 (4.5-11.0) K/mcL RBC 3.47 L (4.00-5.20) M/mcL Hgb 11.7 L (12.0-15.0) g/dL Hct 34.3 L (36.0-48.0) % MCV 98.7 (80.0-100.0) fL MCH 33.6 (26.0-34.0) pg MCHC 34.1 (31.0-36.0) g/dL RDW 15.6 H (11.5-14.5) % Plt Count 384 (140-440) K/mcL MPV 7.5 (7.4-10.4) fL Gran % 83.7 H (38.0-78.0) % Lymph % (Auto) 6.9 L (15.5-49.0) % [place] % (Auto) 9.3 (1.0-12.0) % Eos % (Auto) 0.1 (0.0-7.0) % Baso % (Auto) 0 (0.0-2.0) % Gran # 7.5 (1.8-8.0) K/mcL Lymph # (Auto) 0.6 L (1.5-4.8) K/mcL [place] # (Auto) 0.8 (0.1-0.9) K/mcL Eos # (Auto) 0 (0.0-0.7) K/mcL Baso # (Auto) 0 (0.0-0.3) K/mcL VBG Lactic Acid 1.2 (0.5-2.2) mmol/L Sodium 146 H (133-145) mmol/L Potassium 3.9 (3.3-5.1) mmol/L Chloride 107 (96-108) mmol/L Carbon Dioxide 27 (22-30) mmol/L Anion Gap 12.0 (8-16) BUN 31 H (8-23) mg/dl Creatinine 1.0 (0.6-1.1) mg/dl GFR Calculation 56 Glucose 100 (70-105) mg/dL Calcium 9.1 (8.6-10.4) mg/dl Total Bilirubin 0.5 (0.0-1.0) mg/dL AST 28 (0-37) U/l ALT 27 (0-40) U/l Alkaline Phosphatase 121 H (39-117) U/L Total Protein 7.1 (5.9-8.4) gm/dL Albumin 3.8 (3.2-5.2) gm/dL Globulin 3.3 (2.2-3.7) gm/dL Albumin/Globulin Ratio 1.2 (1.0-2.3) - Radiology Data Radiology results reviewed: Yes I reviewed the patient's radiology results. Disposition Pt seen by ARCGIS DEVELOPER/PA only: No Clinical Impression: Community acquired pneumonia Disposition: Xfer As Inpt ([facility]) Condition: Fair Referrals: Ryanne Bermudez, AILYN, PRINTED CIRCUIT BOARD DESIGNER [Primary Care Provider] - Time of Disposition: 15:12
[2017-12-04] MEDS ORDERED: LACTATED RINGERS 1,000 ML IV ONE (13:49)
--- NOTE | 2017-12-04 14:09 | XRay Report ---
HISTORY: Shortness of breath and fever FINDINGS: Small patchy infiltrate is present in the left lower lobe, above the diaphragm. This is a new finding since 11/05/17. There is parenchymal scarring in the upper lobes. Lungs are mildly hyperinflated. The heart size and pulmonary vasculature are normal. No pleural effusion is present. IMPRESSION: Mild left lower lobe pneumonia superimposed upon COPD Interpreted and Authenticated by: Dawson Shahid 12/04/17
[2017-12-04 14:11] LABS: Basophils # (Auto) 0 K/mcL (0.0-0.3); Basophils % (Auto) 0 % (0.0-2.0); Eosinophils # (Auto) 0 K/mcL (0.0-0.7); Eosinophils % (Auto) 0.1 % (0.0-7.0); Granulocytes % (Auto) 83.7 % (38.0-78.0); Lymphocytes # (Auto) 0.6 K/mcL (1.5-4.8); Lymphocytes % (Auto) 6.9 % (15.5-49.0); Mean Cell Volume 98.7 fL (80.0-100.0); Mean Corpuscular HGB Conc 34.1 g/dL (31.0-36.0); Mean Corpuscular Hemoglobin 33.6 pg (26.0-34.0); Monocytes # (Auto) 0.8 K/mcL (0.1-0.9); Monocytes % (Auto) 9.3 % (1.0-12.0); Platelet Count 384 K/mcL (140-440); RBC 3.47 M/mcL (4.00-5.20); Red Cell Distribution Width 15.6 % (11.5-14.5)
[2017-12-04] MEDS ORDERED: cefTRIAXone 1 GM VIAL IV ONE (14:17)
[2017-12-04] MEDS ORDERED: LEVOFLOXACIN 750 MG/150 ML BAG IV ONE (14:17)
[2017-12-04 14:33] LABS: ALT/SGPT 27 U/l (0-40); Albumin 3.8 gm/dL (3.2-5.2); Albumin/Globulin Ratio 1.2 (1.0-2.3); Alkaline Phosphatase 121 U/L (39-117); Blood Urea Nitrogen 31 mg/dl (8-23)
[2017-12-04] MEDS ORDERED: LORazepam 2 MG/ML VIAL IV ONE ×3 (14:58→19:38)
[2017-12-04] MEDS ORDERED: LORazepam 2 MG/ML VIAL ONE (15:06)
[2017-12-04] MEDS ORDERED: methylPREDNISolone SOD SUCC 125 MG/2 ML VIAL IV ONE (15:22)
[2017-12-04] MEDS ORDERED: IPRATROPIUM/ALBUTEROL 3 ML AMPUL.NEB NEB ONE (15:22)
[2017-12-04 15:32] LABS: Appearance,Urine HAZY; Bacteria,Urine 0 /hpf (0); Bilirubin,Urine NEG (NEG); Color,Urine YELLOW; Glucose,Urine (UA) NEGATIVE (NEG); Leukocyte Esterase,Urine NEG /uL (NEG); Mucus,Urine FEW /hpf (0); Protein,Urine 30 mg/dL (NEG); Specific Gravity,Urine 1.027 (1.000-1.035); Urine Blood NEG mg/dL (<0.03); Urine RBC 3 /hpf (0-1); Urine Squamous Epithelial Cell 1 /hpf (0-4); Urine WBC < 1 /hpf (0-4); Urobilinogen,Urine NEG (NEG)
--- NOTE | 2017-12-04 15:54 | Internal Med History&Physical ---
Medical - H&P: [facility] Patient information: Note initiated : 12/04/17 at 3:51 pm Service Date, if different from initiated Date: [] Patient: Patricia Jenkins a 72 y/o F admitted on for Fever, SOB. Chief Complaint: [] History of present illness: Ms. Jenkins is a 72 year old F with history of advanced dementia recent hip fracture resents to the emergency room from a retirement for evaluation of fever shortness of breath and altered mental status. The patient this morning according to the was not herself was finding it difficult to breathe, retirement also reported a fever. It is my understanding that the EMS got a temperature of 102. The patient given shortness of breath fever was brought to the emergency room for further evaluation. The patient is nonverbal in the emergency room, is not following any commands, is in mild respiratory distress. The patient is predominantly bedbound does not ambulate much it seems, and needs assistance for activities of daily living. The patient in the emergency room had a temperature of 99.7, heart rate 92, respirations anywhere between 24-30, blood pressure 128/95 saturating 95 200% on room air. Patient WBC count was 9000, hemoglobin 11.7, platelet 384, sodium 146 potassium 3.9 bicarbonate 27 creatinine 1 BUN 31, lactic acid is 1.2. Urinalysis is pending. Blood gas shows pH of 7.58-PCO2 28-PO2 83. Chest x-ray shows left basilar pneumonia. The patient is being admitted to the hospital for further management Patient is DNR Comfort Care status however does want antibiotics. ROS unobtainable: due to mental status Medical - H&P: PM Medical history: Medical History (Last Updated 11/12/17 @ 17:06 by mAy King MD) Upper respiratory infection (Acute) Frequent falls (Acute) Dementia (Chronic) Allergic rhinitis (Chronic) Shingles (Acute) Elevated blood pressure reading in office without diagnosis of hypertension ( Acute) Irritability and anger (Acute) COPD (chronic obstructive pulmonary disease) (Chronic) Osteoporosis (Chronic) Memory impairment (Chronic) Hyperlipidemia (Chronic) Hypothyroidism (Chronic) Hematuria (Resolved) Surgical history: Past Surgical History (Last Updated 11/12/17 @ 17:07 by Amy King MD) History of hemiarthroplasty of left hip (Acute 11/05/17) History of tonsillectomy (Resolved) Status post cataract surgery (Resolved ~01/2016) Family history: reviewed and not pertinent Medical - H&P: Meds Home Medications Medication Instructions Recorded Confirmed Type multivitamin,os-xwsk-sgkexgiu 1 tab PO QDAY 04/25/15 11/11/17 History tablet fluoxetine 40 mg capsule 40 mg PO QDAY #30 cap 08/24/17 11/11/17 Rx trazodone 50 mg tablet 50 mg PO QDAY PRN #90 tab 10/20/17 11/11/17 Rx levothyroxine 112 mcg tablet 112 mcg PO QDAY #30 tab 10/30/17 11/11/17 Rx Acetaminophen [Tylenol] 650 mg PO Q6HP PRN tablet 11/10/17 11/11/17 Rx Enoxaparin [Lovenox] 40 mg SQ DAILY #28 syringe 11/10/17 11/11/17 Rx Ipratropium/Albuterol [Duoneb] 3 ml NEB TID ampul.neb 11/10/17 11/11/17 Rx LORazepam [Ativan] 1 tab PO TID PRN #30 tab 11/10/17 11/11/17 Rx Methocarbamol [Robaxin] 500 mg PO TID #30 tab 11/10/17 11/11/17 Rx oxyCODONE HCL [Roxicodone] 5 mg PO Q4HP PRN #40 tab 11/10/17 11/11/17 Rx Bisacodyl [Dulcolax] 10 mg [place] Q2-3DAYS PRN #30 supp.rect 11/17/17 Rx Divalproex [Depakote Sprinkles] 250 mg PO BIDAC #10 cap.sprink 11/17/17 Rx Enoxaparin [Lovenox] 40 mg SQ DAILY #23 syringe 11/17/17 Rx oxyCODONE HCL [Roxicodone] 5 mg PO Q6HP PRN #10 tab 11/18/17 Rx predniSONE [Prednisone] 10 mg PO QAMCC #1 tab 11/18/17 Rx Allergies Allergy/AdvReac Type Severity Reaction Status Date / Time Penicillins Allergy Mild Hives Verified 11/07/17 07:05 Donepezil AdvReac Intermediate Hallucinati Verified 11/07/17 07:05 ng memantine [From Namenda] AdvReac Intermediate Hallucinati Verified 10/22/17 08: 12 ng cabbage AdvReac Mild Headache Uncoded 11/07/17 07:05 Medical - H&P: Exam - Constitutional Vitals: Temp Pulse Resp BP Pulse Ox 99.7 F H 88 23 H 131/113 99 12/04/17 13:35 12/04/17 14:50 12/04/17 15:01 12/04/17 15:01 12/04/17 14:50 Exam: GENERAL: The patient is a thin frail old lady, in mild respiratory distress. Appears drowsy does not follow commands VITAL SIGNS: Reviewed and as noted elsewhere. HEENT: Head is normocephalic and atraumatic. Extraocular muscles are intact. Pupils are equal, round, and reactive to light. Nares appeared normal. Patient has poor dentition, cheeks appeared crusted she has some bite smallwood on the inner left cheek.. Mucous membranes are dry,. NECK: Normal to inspection, Supple, No lymphadenopathy or thyromegaly. LUNGS: Air entry equal on both sides significantly decreased air entry bilaterally, prolonged expiratory phase, very mild wheeze, no obvious crackles or rhonchi noted. Patient is mildly using her accessory muscles of respiration. HEART: Regular rate and rhythm normal, S1 and S2 heard, no Gallop, S3 or Rub Noted, No Gross murmur heard. ABDOMEN: Soft, nontender, and nondistended. Positive bowel sounds. No hepatosplenomegaly was noted. EXTREMITIES: No cyanosis, clubbing, rash, lesions or edema. NEUROLOGIC: Cranial nerves II through XII are grossly intact. Motor and Sensory System Grossly Intact PSYCHIATRIC: Drowsy and uncooperative. SKIN: No ulceration or wounds noted, No jaundice, No rash noted. Medical - H&P: Reslt - Labs CBC & Chem 7: 12/04/17 13:51 12/04/17 13:51 Labs: Short CBC 12/04/17 Range/Units 13:51 WBC 9.0 (4.5-11.0) K/mcL Hgb 11.7 L (12.0-15.0) g/dL Hct 34.3 L (36.0-48.0) % Plt Count 384 (140-440) K/mcL BMP 12/04/17 13:51 Sodium 146 H Potassium 3.9 Chloride 107 Carbon Dioxide 27 BUN 31 H Creatinine 1.0 Glucose 100 Calcium 9.1 Liver Function 12/04/17 Range/Units 13:51 Total Bilirubin 0.5 (0.0-1.0) mg/dL AST 28 (0-37) U/l ALT 27 (0-40) U/l Alkaline Phosphatase 121 H (39-117) U/L Albumin 3.8 (3.2-5.2) gm/dL Urine 12/04/17 Range/Units 14:46 Urine Color Yellow Urine Appearance Hazy Urine pH 6.0 (5.0-9.0) Ur Specific [place] 1.027 (1.000-1.035) Urine Protein 30 A (NEG) mg/dL Urine Glucose (UA) Negative (NEG) mg/dL Medical - H&P: A/P - Narrative A/P Narrative: A/P Health care associated pneumonia/ Possible aspiration pneumonia _noted on the x- ray, blood culture sent started on IV Levaquin and Rocephin in the ED. Given that there is a concern for aspiration I will start the patient on Zosyn. Do a MRSA swab if negative will hold off on vancomycin. COPD exacerbation-patient is tachypneic, has not received any albuterol yet we will start the patient on steroids as well as nebulizers. Antibiotics have been used for pneumonia. Patient does not have increased oxygen needs. Blood gas reviewed. Next line Dementia fairly advanced, conservative management high risk for delirium. Resume home meds Hypernatremia-sodium 146 should respond to IV fluids likely due to decreased oral intake. Dehydration-patient has dry mucosa, elevated BUN, IV fluids for now. HLD/Hypothyroidism- resume home meds once verified Recent Hip fracture, pain management, PT/OT to prevent contractures, Dysphagia- [facility], Dysphagia 2 diet for now till seen by [facility] Diet as above DNR code status, Plan of care reviewed with and son in the ER . Social History - Social History household members: spouse, family, other housing: house marital status: occupational status: retired occupation: [employer] occupational exposures/hazards: No pets and animals: No leisure activities: art, reading other: 2 sons - Dietary Habits well-balanced diet: about half the time eating out: 1-3 times/week during the past year weight has: decreased > 10 lbs - Exercise physical activity: additional frequency: other - Tobacco smoking status: Never smoker - Alcohol alcohol intake frequency: does not drink - Substance use substance use type: does not use - Madeline/Rastafarian madeline/moravian: Adventist - Home Safety working smoke detector in home: Yes
[2017-12-04] MEDS ORDERED: ACETAMINOPHEN 325 MG TABLET PO PRN (16:39)
[2017-12-04] MEDS ORDERED: DEXTROSE 5%-1/2NS 1,000 ML IV SCH (16:39)
[2017-12-04] MEDS ORDERED: oxyCODONE HCL 5 MG TABLET PO PRN (16:39)
[2017-12-04] MEDS ORDERED: ALBUTEROL SULFATE 2.5 MG/3 ML NEBULIZER NEB PRN (16:39)
[2017-12-04] MEDS ORDERED: ONDANSETRON 4 MG/2 ML VIAL IV PRN (16:39)
[2017-12-04] MEDS ORDERED: NALOXONE HCL 0.4 MG/ML VIAL IV PRN (16:39)
[2017-12-04] MEDS ORDERED: ACETAMINOPHEN 650 MG/65 ML BOTTLE IV PRN (16:56)
[2017-12-04] MEDS: HYDROmorphone 2 MG/ML VIAL IV PRN ×2 (17:58→18:23)
[2017-12-04] MEDS: PIPERACILLIN SODIUM/TAZOBACTAM 3.375 GM in DEXTROSE 5% IN WATER 50 ML IV SCH (17:59)
[2017-12-04] MEDS ORDERED: HYDROmorphone 2 MG/ML VIAL IV PRN (18:53)
[2017-12-04] MEDS: IPRATROPIUM/ALBUTEROL 3 ML AMPUL.NEB NEB SCH ×2 (19:27→23:36)
[2017-12-04] MEDS ORDERED: CHLORHEXIDINE GLUCONATE 1 ML ORAL.SOL SSP SCH (21:00)
[2017-12-04] MEDS ORDERED: MULTIVIT,THER IRON,CA,FA & MIN 1 TABLET PO SCH (21:00)
[2017-12-04] MEDS ORDERED: THIAMINE 100 MG TABLET PO SCH (21:00)
[2017-12-04] MEDS ORDERED: HEPARIN 5,000 UNIT/ML VIAL SQ SCH (21:00)
[2017-12-04] MEDS ORDERED: ZINC SULFATE 50 MG CAPSULE PO SCH (21:00)
[2017-12-04] MEDS ORDERED: 0.9 % SODIUM CHLORIDE 10 ML SYRINGE IV SCH (22:00)
[2017-12-05] MEDS: PIPERACILLIN SODIUM/TAZOBACTAM 3.375 GM in DEXTROSE 5% IN WATER 50 ML IV SCH (00:01)
[2017-12-05] MEDS ORDERED: predniSONE 20 MG TABLET PO SCH (08:00)
--- NOTE | 2017-12-05 08:31 | Death Note ---
Discharge Sum: Prov - Provider Patient information: Note initiated : 12/05/17 at 8:27 am Service Date, if different from initiated Date: [] Patient: Patricia Jenkins 72 y/o F admitted on 12/04/17 for Fever, SOB. Chief Complaint: [] Primary care physician: Ryanne Bermudez Admitting clinician: Sylvain Mckeon Consults: 12/04/17 15:10 Consult to Physician [CONS] Stat Comment: Consulting Provider: Sylvain Mckeon Reason For Exam: Physician to Consult Discharge Sum: Diag - PCOD Cause of : Pneumonia Discharge Sum: Summary - Date and Time Date of admission: 12/04/17 16:24 Date of : 12/05/17 Time of : 00:30 - Summary Details: Ms. Jenkins is a 72 year old F with history of advanced dementia recent hip fracture resents to the emergency room from a [facility] for evaluation of fever shortness of breath and altered mental status. The patient this morning according to the was not herself was finding it difficult to breathe, [facility] also reported a fever. It is my understanding that the EMS got a temperature of 102. The patient given shortness of breath fever was brought to the emergency room for further evaluation. The patient is nonverbal in the emergency room, is not following any commands, is in mild respiratory distress. The patient is predominantly bedbound does not ambulate much it seems, and needs assistance for activities of daily living. The patient in the emergency room had a temperature of 99.7, heart rate 92, respirations anywhere between 24- 30, blood pressure 128/95 saturating 95 200% on room air. Patient WBC count was 9000, hemoglobin 11.7, platelet 384, sodium 146 potassium 3.9 bicarbonate 27 creatinine 1 BUN 31, lactic acid is 1.2. Urinalysis is pending. Blood gas shows pH of 7.58-PCO2 28-PO2 83. Chest x-ray shows left basilar pneumonia.The patient is being admitted to the hospital for further management. Patient is DNR Comfort Care status however does want antibiotics. The patient remained distressed after admission to the hospital, she was treated with dilaudid, ativan and antibiotics. Family was by the bed side, I reviewed the goals of care again with them, they did not wish any aggressive interventions, only comfort measures, if antibiotics did not help, then they just wanted the patient to be comfortable The patients condition worsened as during the night and she at 0030. Familyw as by the bed side Cause of - Pneumonia- Aspirational, secondary to oropharyngeal dysphagia, vascular dementia. - Additional Data Confirmation of as documented by pronouncing clinician: no pulse, no respirations, no heart sounds, pupils fixed and dilated Family: at bedside Attending/PCP notified?: Yes Attending physician: Sylvain Mckeon Was code activated?: No Autopsy requested?: No Advance directives?: Yes
== END 2017-12-05 02:47 | disposition expired | DRG 190 ==
LOC: ED 13:35 → MEDSUR 16:24
PROVIDERS: ADMIT Internal Medicine; ATTEND Internal Medicine